=== PATIENT | male | born 1935 | race Caucasian/White ===

== ENCOUNTER 2018-03-11 06:13 | Day surgery (SDC) | payer OTHER ==
[~2018-03-11 06:13] MED LIST: Scopolamine 1.5 MG Transdermal Patch TRDERM ONE
[2018-03-11] MEDS ORDERED: Sodium Chloride 0.9% 10 ML Syringe FLUSH PRN (06:45)
[2018-03-11] MEDS ORDERED: Scopolamine 1.5 MG Transdermal Patch TRDERM ONE (08:00)
[2018-03-11] MEDS ORDERED: Acetaminophen 500 MG Tab PO ONE (08:00)
[2018-03-11] MEDS ORDERED: Gabapentin 300 MG Cap PO ONE (08:00)
[2018-03-11] MEDS: Lactated Ringers 1,000 ML IV SCH ×2 (08:14→21:41)
[2018-03-11] MEDS ORDERED: ePHEDrine 50 MG/ML SDV IV ONE (10:30)
[2018-03-11] MEDS ORDERED: fentaNYL 100 MCG/2 ML SDV IV ONE (10:30)
[2018-03-11] MEDS ORDERED: Dexamethasone 4 MG/ML 5 ML MDV IVPUSH ONE (10:30)
[2018-03-11] MEDS ORDERED: Propofol 200 MG/20 ML SDV IV ONE (10:30)
[2018-03-11] MEDS ORDERED: Glycopyrrolate 0.2 MG/ML 2 ML SDV IV ONE (10:30)
[2018-03-11] MEDS ORDERED: Hetastarch in NS 500 ML IV ONE (10:30)
[2018-03-11] MEDS ORDERED: Rocuronium 100 MG/10 ML MDV IV ONE (10:30)
[2018-03-11] MEDS ORDERED: Succinylcholine 200 MG/10 ML MDV IV ONE (10:30)
[2018-03-11] MEDS ORDERED: Lidocaine 1% 30 ML SDV INJECT ONE (10:30)
[2018-03-11] MEDS ORDERED: Ondansetron 4 MG/2 ML SDV IVPUSH ONE (10:30)
[2018-03-11] MEDS ORDERED: Bupivacaine 0.25% 30 ML SDV INJECT ONE (10:30)
[2018-03-11] MEDS ORDERED: Clindamycin in 0.9 % Sod Chlor 900 MG/50 ML BAG IV ONE (10:30)
[2018-03-11] MEDS ORDERED: Midazolam 1 MG/ML 2 ML SDV IV ONE (10:30)
[2018-03-11] MEDS ORDERED: Metoprolol Tartrate 5 MG/5 ML SDV IV ONE (10:30)
[2018-03-11] MEDS ORDERED: Ketamine 500 mg/10 ML MDV IV ONE (10:30)
[2018-03-11] MEDS ORDERED: Lactated Ringers 1,000 ML IV ONE (10:30)
[2018-03-11] MEDS ORDERED: Naloxone 0.4 MG/ML SDV IVPUSH PRN (13:58)
[2018-03-11] MEDS ORDERED: Ondansetron 4 MG/2 ML SDV IVPUSH PRN (13:58)
[2018-03-11] MEDS ORDERED: Docusate Sodium 100 MG Cap PO PRN (13:58)
[2018-03-11] MEDS ORDERED: Morphine 10 MG/ML Syringe IVPUSH PRN (13:58)
--- NOTE | 2018-03-11 14:56 | PCM.PRNOTE ---
- Free Text/Narrative Note: Supraclavicular approach to brachial plexus block: left side for post op pain management for left reverse total shoulder arthroplasty. The patient was brought into the procedure room after consent was obtained. ASA monitors were placed and oxygen 4L/NC was administered. A time out pre procedure was completed and 824 and site was confirmed by operative marking per surgeon and anesthesia. The patient was sedated with a total of 2 mg versed and 100 mcg fentanyl for the procedure. He was prepped with chloraprep and draped in the usual fashion. The prep was allowed to dry. Procedure time: 5490-3031 Procedure: Initial scan in plane view via ultrasound identifies aragon structures of subclavian artery, the brachial plexus, first rib, and the pleura. A skin wheal of 1% lidocaine prior to needle entry. A 20 gauge 4 inch simuplex echogenic needle was used. Under direct vision via ultrasound the needle was guided around the brachial plexus. Nerve stimulation was also used with positive twitch at 0.8 ma and lost at 0.3 ma. Negative aspiration prior to each injection of incremental doses of 5ml of 0.25% bupivicaine mixed with 8 mg decadron, for a total volume of 30 ml bupivicaine. Elipse filling around the brachial plexus was noted and images are saved in PACS system. Vital signs remained stable throughout. Within 10 minutes, he lost motor capability and arm felt "". The patient was returned to OPS admitting area and placed on 2L/NC oxygen and pulse oximeter and report was given to RN.
--- NOTE | 2018-03-11 15:26 | CR ---
INDICATION: TSA, postop for reverse total shoulder arthroplasty. LEFT SHOULDER: A single portable AP upright view of the left shoulder was obtained post reverse total shoulder arthroplasty and revealed suggestion of good position and alignment on the single view with no definite complicating process identified. Overlying skin argenis are noted. The convex glenoid component of the arthroplasty is noted along the inferior aspect of the glenoid fossa. Findings were compared with preop study of 2017 showing severe glenohumeral osteoarthritis. LAUREN
[2018-03-11] MEDS: Acetaminophen/oxyCODONE 325-5 MG Tab PO PRN ×2 (15:47→19:46)
[2018-03-11] MEDS: Famotidine 20 MG Tab PO SCH ×2 (16:20→21:30)
[2018-03-11] MEDS: Clindamycin in 0.9 % Sod Chlor 900 MG/50 ML BAG IV SCH (18:14)
[2018-03-11] MEDS ORDERED: Citalopram 20 MG Tab PO SCH (21:00)
[2018-03-11] MEDS ORDERED: atorvaSTATin 40 MG Tab PO SCH (21:00)
[2018-03-11] MEDS ORDERED: AMITRIPTYLINE HCL 75 MG PO SCH (21:00)
--- NOTE | 2018-03-11 21:08 | OR ---
DATE OF OPERATION: 03/11/2018 SURGEON: Ravi Manzanares DO PREOPERATIVE DIAGNOSES: Left shoulder glenohumeral arthritis, rotator cuff arthropathies. POSTOPERATIVE DIAGNOSES: Left shoulder glenohumeral arthritis, rotator cuff arthropathies. PROCEDURE: Left shoulder total reverse shoulder arthroplasty. ANESTHESIA: Interscalene block plus endotracheal intubation. FLUID: Lactated ringer solution. ESTIMATED BLOOD LOSS: 100 mL. COMPLICATIONS: None. SPECIMEN: None. DISCHARGE DISPOSITION: Stable to PACU. INSTRUMENTATION: Biomet standard baseplate with a 41 standard glenosphere. Humeral component is a 17 mini stem, size 50 mm central screw, 40 mm and 45 mm superior and posterior screws. HISTORY/INDICATIONS FOR THE PROCEDURE: The patient was seen preoperatively in the clinic. He had a right total shoulder performed approximately 25 years ago. He did quite well from this. Preoperative imaging confirmed the above-mentioned diagnosis. He failed nonoperative treatment. Risks and benefits of the procedure were explained to the patient. Informed consent was obtained. DETAILS OF PROCEDURE: The patient was seen preoperatively by me and the Anesthesia staff in the preoperative holding area where the operative site was marked. He was brought to the operative suite by the Anesthesia staff where an interscalene block was administered as well as general endotracheal intubation. The patient was placed in a beach chair position, all extremities found to be well padded. There was a towel placed under the posterior scapula. The left upper extremity was then prepped and draped in a sterile manner. Time-out was called identifying the correct patient, the correct procedure, the correct site, and antibiotics have been infiltrated at appropriate period of time. A deltopectoral incision was made 2 cm distal to the axilla and 2 cm proximal to coracoid process, just medial to it. The cephalic vein was not identified. I went through the deltopectoral interval, identified the superior border the pectoralis major, and then released the superior 1 cm of this. I then released any adhesions under the deltoid. I then identified the intertubercular groove along the biceps tendon up to the glenoid. I tagged the biceps tendon and released it. I then stayed on bone underneath the humeral head and released the anterior capsule and released this up to the glenoid. I then identified the supraspinatus and infraspinatus which were still intact, I tagged these. I tagged the subscapularis before releasing it. I then rotated the humerus and was able to release the posterior capsule. There was an incredibly large osteophyte in the inferior humeral neck. I took this off with an osteotome, I was unable to remove it, so I put in my reamers after dislocating the humeral head and reamed up to a 17 and attached my cutting guide and pinned that in place, removed the reamer, and then cut my proximal humeral cut. After this had been performed, I was able to remove the inferior humeral neck osteophyte. I then sequentially broached up to a 17. I used the calcar reamer at that point, the bone was incredibly poor. We left the broach in and then retracted for glenoid exposure which was extremely difficult. I removed as much as the labrum as possible. I then used my guide and then placed my central Renzo pin and then reamed until the inferior portion had gone through the cartilage. When I had done this, I think that when I removed my inferior osteophyte that it may have put too much pressure along the anterior glenoid and the inferior glenoid. I had very little bone left. I decided that it was not worth repositioning because I could not guarantee that the rest of the bone would not be as good. We then put in the trial to make sure that the glenoid component would fit, which it did. We then inserted our glenoid baseplate and tamped this into position and then drilled a 50 central hole and then put a 50 central screw, and I then used my guide and placed a 45 mm superior and a 40 mm posterior lag screw, this had excellent bite. I placed and inferior 15 mm screw as well, which was a locking, with very poor bite. I then removed bone from the humeral head and then tacked the area of glenoid loss anteriorly. The baseplate did appear to be quite solid. I then prepared my glenosphere. I tamped it into a C- position and then implanted it. This provided excellent stability. I then focused on my humeral component. Because there was some substance, I used the calcar reamer again and then I thought that my final stem was a little bit loose, so I used cancellous chips and packed around the proximal humerus. This had put in the correct version. I then put in my trial standard baseplate and then ended up with a +3. This provided excellent stability throughout range of motion. I copiously irrigated with saline. Before I placed in my humeral stem, I placed multiple anchors using JuggerKnot anchors and then reattached the supraspinatus, infraspinatus, proximal biceps tendon, and subscapularis. I then closed my deltopectoral interval with #1 Stratafix and then the subcutaneous layer with #1 Stratafix and then tagged it deep to decrease my space. I then used a 3-0 Stratafix, followed by skin argenis, followed by sterile dressing. The patient was then allowed to awaken from anesthesia and taken to the PACU in stable condition. /[id number] AMARA/CHLOE
[2018-03-11] MEDS: Gabapentin 600 MG Tab PO SCH (21:31)
[2018-03-11] MEDS: metFORMIN 500 MG Tab PO SCH (21:31)
[2018-03-12] MEDS: Clindamycin in 0.9 % Sod Chlor 900 MG/50 ML BAG IV SCH ×2 (01:46→10:03)
[2018-03-12] MEDS: Acetaminophen/oxyCODONE 325-5 MG Tab PO PRN ×3 (01:53→12:53)
[2018-03-12] MEDS: Pantoprazole 40 MG Tab.CR PO SCH ×2 (05:02→06:53)
[2018-03-12] MEDS: Lactated Ringers 1,000 ML IV SCH (06:04)
[2018-03-12] MEDS ORDERED: Atenolol 25 MG Tab PO SCH (09:00)
[2018-03-12] MEDS ORDERED: Calcium Polycarbophil 625 MG Tab PO SCH (09:00)
[2018-03-12] MEDS ORDERED: Chlorthalidone 25 MG Tab PO SCH (09:00)
[2018-03-12] MEDS ORDERED: Lisinopril 2.5 MG Tab PO SCH (09:00)
[2018-03-12] MEDS: metFORMIN 500 MG Tab PO SCH (09:14)
[2018-03-12] MEDS: Famotidine 20 MG Tab PO SCH (09:15)
[2018-03-12] MEDS: Gabapentin 600 MG Tab PO SCH (09:15)
[2018-03-12 09:16] VITALS: BP 118/54
--- NOTE | 2018-03-12 15:02 | DISCH ---
DISCHARGE DATE: 03/12/2018 HISTORY OF PRESENT ILLNESS: Mr. Quach is an 82-year-old, male, who resides in [place], [place], seen in the morning of 03/12 for discharge. Underwent left shoulder total reverse shoulder arthroplasty under the care of Dr. Ravi Manzanares under interscalene block and endotracheal intubation. All went well. Pain is minimal by his report. Completing three doses of intravenous clindamycin. LABORATORY STUDIES: On 03/02/2018, hemoglobin 10.3, white count 10,000, normal differential. Preoperative hemoglobin 13.9, hematocrit 42.3 respectively. OBJECTIVE: VITAL SIGNS: 36.7, 118/54, 75, 92% on room air. GENERAL: Appears comfortable. NECK: Benign. Thyroid small. Shoulder had a bulky dressing intact without discharge or redness. CHEST: Clear all lung matamoros. HEART: Regular. ASSESSMENT: Postoperative care, left shoulder total shoulder replacement. PLAN: All looks well. Outpatient home health will be provided by [facility]. Support services in place, cooperative care and well being. Follow up with Dr. Ravi Manzanares as indicated accordingly. /[id number] /CHLOE
== END 2018-03-12 12:58 | disposition home or self-care (01) ==
LOC: FB.SDS 06:13 → FB.MS 14:47 → FB.SDS 03-12 12:58
PROVIDERS: ATTEND Orthopaedic Surgery
DX: M19.012 Primary osteoarthritis, left shoulder (principal); G89.18 Other acute postprocedural pain
CPT/HCPCS: 23472; 36415; 64415; 73020; 80053; 82962; 85025; 85027; 86850; 86900; 86901; A9270; J2270; J3490; J7120; 99213; C1713; C1776; J0330; J1100; J2250; J2405; J2704; J3010; J7030

== ENCOUNTER 2018-04-21 16:53 | Inpatient (IN) | payer OTHER, MEDICARE, BC ==
--- NOTE | 2018-04-21 17:31 | EDM.PDOC ---
ED HPI GENERAL MEDICAL PROBLEM - General Stated Complaint: NECK AND SHOULDER PAIN,DIZZINESS,NAUSEA Time Seen by Provider: 04/21/18 16:53 Source of Information: Reports: Patient History Limitations: Reports: No Limitations - History of Present Illness INITIAL COMMENTS - FREE TEXT/NARRATIVE: 83 y.o.w.m s/p left shoulder replacement on 03/11/2018, H/O NIDDM, came to the ed due to severe left arm pain which started after he had physical Therapy for the firs time today. Any movement of his left arm hurts. He C/O dizziness, neck pain and bilat shoulder pain as well. Pt denied any fall and trauma other then the physical therapy today. He denied H/A and C/P. No N/V/D or any other acute medical issues. BP 127/87 Pulse 80, Temp 36.7 RR 20 Pulse ox 96% on RA. Onset Date: 04/20/18 Onset Time: 16:00 Duration: Day(s):, Getting Worse, Intermittent Location: Reports: Head, Neck, Back (upper back, ), Upper Extremity, Left ( swelling of left upper arm) Quality: Reports: Ache, Burning, Dull, Pressure Severity: Mild Improves with: Reports: Rest Worsens with: Reports: Movement Context: Reports: Other (His dizziness, meck pain and upper shpulde rpain started yesterday after physical Tx) L neck & shoulder Pain Score (Numeric/FACES): 6 - Related Data Allergies Allergy/AdvReac Type Severity Reaction Status Date / Time amoxicillin [Amoxicillin] Allergy Diarrhea Verified 04/21/18 18:39 Penicillins Allergy Diarrhea Verified 04/21/18 18:39 Home Meds: Home Meds Atenolol [Tenormin] 25 mg PO DAILY 01/14/15 [History] Lisinopril 2.5 mg PO DAILY 01/14/15 [History] Aspirin [Children's Aspirin] 81 mg PO DAILY 01/15/15 [History] Gabapentin [Neurontin] 600 mg PO BID 11/16/16 [History] Calcium Polycarbophil [Fibercon] 1,250 mg PO DAILY 03/10/18 [History] Chlorthalidone 12.5 mg PO DAILY 03/10/18 [History] Citalopram Hydrobromide [Celexa] 20 mg PO BEDTIME 03/10/18 [History] Pantoprazole Sodium [Protonix] 40 mg PO DAILY 03/10/18 [History] atorvaSTATin Calcium [Atorvastatin Calcium] 40 mg PO DAILY 03/10/18 [History] metFORMIN HCl [Metformin HCl] 250 mg PO BID 03/10/18 [History] Acetaminophen [Tylenol Arthritis] 1,300 mg PO TID 04/21/18 [History] Past Medical History - Past Health History Medical/Surgical History: Denies Medical/Surgical History HEENT History: Reports: Cataract, Hard of Hearing, Impaired Vision Cardiovascular History: Reports: Heart Murmur, High Cholesterol, Hypertension Respiratory History: Reports: None Gastrointestinal History: Reports: GERD Genitourinary History: Reports: BPH 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 Dermatologic History: Reports: Other (See Below) Other Dermatologic History: DERMATITIS, UNSPECIFIED - Past Surgical History Head Surgeries/Procedures: Reports: None HEENT Surgical History: Reports: Cataract Surgery, Tonsillectomy Other Musculoskeletal Surgeries/Procedures:: L RICHMOND, R TSA and hx of OA Social & Family History - Family History Family Medical History: Noncontributory - Caffeine Use Caffeine Use: Reports: Coffee ED ROS GENERAL - Review of Systems Review Of Systems: See Below Constitutional: Reports: Weakness HEENT: Reports: No Symptoms Respiratory: Reports: No Symptoms Cardiovascular: Reports: No Symptoms Endocrine: Reports: No Symptoms GI/Abdominal: Reports: No Symptoms : Reports: No Symptoms Musculoskeletal: Reports: Neck Pain, Shoulder Pain, Arm Pain, Muscle Pain Skin: Reports: No Symptoms Neurological: Reports: No Symptoms Psychiatric: Reports: No Symptoms Hematologic/Lymphatic: Reports: No Symptoms Immunologic: Reports: No Symptoms ED EXAM, UPPER BACK/NECK PAIN - Physical Exam Exam: See Below Exam Limited By: No Limitations General Appearance: Alert, Moderate Distress, Thin Eye Exam: Bilateral Eye: Normal Inspection Ears Exam: Normal External Exam Nose Exam: Normal Inspection Throat/Mouth Exam: Normal Inspection, Normal Lips, Normal Gums, Normal Voice, No Airway Compromise, Dental Decay Head Exam: Atraumatic, Normocephalic Neck Exam: Limited Range of Motion, Paraspinous Muscle Tender, Tender Lateral Cardiovascular/Respiratory: Regular Rate, Rhythm, No M/R/G, Normal Peripheral Pulses, No JVD, No Respiratory Distress GI/Abdominal: Normal Bowel Sounds, Soft, Non-Tender, No Organomegaly, No Distention, No Abnormal Bruit, No Mass, Pelvis Stable (Male) Exam: Deferred Rectal (Males) Exam: Deferred Back Exam: Normal Inspection, Full Range of Motion Extremities: Normal Capillary Refill, Joint Swelling (left shoulder), Limited Range of Motion (of left soulder due to pain) 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 Any movement of his left arm hurts. He C/O dizziness, neck pain and bilat shoulder pain as well. Pt denied any fall and trauma other then the physical therapy today. He denied H/A and C/P. No N/V/D or any other acute medical issues. BP 127/87 Pulse 80, Temp 36.7 RR 20 Pulse ox 96% on RA. PE: Thin 83 y.o.w.m with left arm, oriana shoulder and neck pain. Dizziness as well. Imaging: No PE/Pneumonia, Tip of screws abuts left lat 3rd rib. 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 Left arm pain Tx: Ice, Toradol, water po 9.23 pm Consultation: Dr. Elza Reyes [facility]: Not convinced there is a dislocation or Fx left upper extremity nor an acute rib fx, recommends CT left upper extremity. 10.04 pm Consultation: Dr. Chan, Interventional Radiologist: Could not see Pseudaneurysm/Aneurysm at te left wall, no need to do any procedure at this time 10.12 PM Consultation: Dr. Manzanares, Surgeon: CT left upper extremity. Please admit to Hospitalist. Dr. Manzanares will see the pt in am Reexam: Pt remained stable in the ED Plan: Admit for obs. CT left shoulder/arm is pending Last Recorded V/S: Last Vital Signs Temp 36.5 C 04/22/18 03:30 Pulse 81 04/22/18 03:30 Resp 16 04/22/18 03:30 BP 168/91 H 04/22/18 03:30 Pulse Ox 94 L 04/22/18 03:30 - Orders/Labs/Meds Orders: Active Orders 24 hr Category Date Time Status Cooling Warming Measures [RC] .PRN Care 04/21/18 22:20 Active Ang Chest [CT] Stat Exams 04/21/18 17:59 Taken Cervical Spine wo Cont [CT] Stat Exams 04/21/18 19:14 Taken Head wo Cont [CT] Stat Exams 04/21/18 19:14 Taken Upper Extremity wo Cont Lt [CT] Stat Exams 04/21/18 22:20 Taken VL Duplex Upr Ext Veins Ltd Lt [US] Stat Exams 04/21/18 17:43 Taken UA W/MICROSCOPIC [URIN] Stat Lab 04/21/18 19:25 Ordered Sodium Chloride 0.9% [Saline Flush] Med 04/21/18 18:53 Active 10 ml FLUSH ASDIRECTED PRN Ice Bag [Ice Therapy] [OM.PC] Routine Oth 04/21/18 22:20 Ordered Peripheral IV Insertion Adult [OM.PC] Routine Oth 04/21/18 18:53 Ordered Medication Orders Acetaminophen (Tylenol Arthritis Pain) 1,300 mg PO BID MELISSA Aspirin (Aspirin) 81 mg PO DAILY MELISSA Atenolol (Tenormin) 25 mg PO DAILY MELISSA Calcium Polycarbophil (Fibercon) 1,250 mg PO DAILY MELISSA Chlorthalidone (Chlorthalidone) 12.5 mg PO DAILY MELISSA Citalopram Hydrobromide (Celexa) 20 mg PO BEDTIME MELISSA Diphenhydramine HCl (Benadryl) 50 mg PO BEDTIME PRN PRN Reason: Sleep Last Admin: 04/22/18 00:49 Dose: 50 mg Gabapentin (Neurontin) 600 mg PO BID [facility] Lisinopril (Prinivil) 2.5 mg PO DAILY [facility] Morphine Sulfate (Morphine) 2 mg IVPUSH Q4H PRN PRN Reason: Pain Last Admin: 04/22/18 07:50 Dose: 2 mg Admin: 04/22/18 03:43 Dose: 2 mg Non-Formulary Medication (Atorvastatin Calcium [Atorvastatin Calcium]) 40 mg PO DAILY [facility] Pantoprazole Sodium (Protonix) 40 mg PO DAILY [facility] Sodium Chloride (Saline Flush) 10 ml FLUSH ASDIRECTED PRN PRN Reason: Keep Vein Open Last Admin: 04/22/18 07:51 Dose: 10 ml Admin: 04/22/18 03:44 Dose: 10 ml Admin: 04/21/18 22:42 Dose: 10 ml Admin: 04/21/18 18:45 Dose: 10 ml Labs: Laboratory Tests 04/21/18 04/21/18 04/21/18 Range/Units 17:35 17:35 17:35 WBC 9.6 (4.5-12.0) X10-3/uL RBC 3.87 L (4.30-5.75) x10(6)uL Hgb 11.7 (11.5-15.5) g/dL Hct 35.6 (30.0-51.3) % MCV 91.9 (80-96) fL MCH 30.2 (27.7-33.6) pg MCHC 32.8 (32.2-35.4) g/dL RDW 13.0 (11.5-15.5) % Plt Count 312 (125-369) X10(3)uL MPV 6.8 L (7.4-10.4) fL Neut % (Auto) 69.1 (46-82) % Lymph % (Auto) 22.9 (13-37) % [place] % (Auto) 3.3 L (4-12) % Eos % (Auto) 4 (1.0-5.0) % Baso % (Auto) 1 (0-2) % Neut # (Auto) 6.7 (1.6-8.3) # Lymph # (Auto) 2.2 (0.6-5.0) # [place] # (Auto) 0.3 (0.0-1.3) # Eos # (Auto) 0.4 (0.0-0.8) # Baso # (Auto) 0.0 (0.0-0.2) # PT (8.7-11.1) INR (0.89-1.13) D-Dimer, Quantitative 1.93 H (0.0-0.59) mg/LFEU Sodium 138 (135-145) mmol/L Potassium 3.4 L (3.5-5.3) mmol/L Chloride 101 (100-110) mmol/L Carbon Dioxide 28 (21-32) mmol/L BUN 21 H (7-18) mg/dL Creatinine 1.0 (0.70-1.30) mg/dL Est Cr Clr Drug Dosing TNP Estimated GFR (MDRD) > 60 (>60) BUN/Creatinine Ratio 21.0 H (9-20) Glucose 146 H (80-116) mg/dL Calcium 8.8 (8.6-10.2) mg/dL Creatine Kinase 21 L (60-160) IU/L Troponin I (<0.017-0.056) ng/mL Urine Color (YELLOW) Urine Appearance (CLEAR) Urine pH (5.0-6.5) Ur Specific [place] (1.010-1.025) Urine Protein (NEGATIVE) mg/dL Urine Glucose (UA) (NEGATIVE) mg/dL Urine Ketones (NEGATIVE) mg/dL Urine Occult Blood (NEGATIVE) Urine Nitrite (NEGATIVE) Urine Bilirubin (NEGATIVE) Urine Urobilinogen (NEGATIVE) mg/dL Ur Leukocyte Esterase (NEGATIVE) Urine RBC (0) Urine WBC (0) Ur Squamous Epith Cells (NS,R,O) Urine Bacteria (NS) 04/21/18 04/21/18 04/21/18 Range/Units 17:35 17:35 19:25 WBC (4.5-12.0) X10-3/uL RBC (4.30-5.75) x10(6)uL Hgb (11.5-15.5) g/dL Hct (30.0-51.3) % MCV (80-96) fL MCH (27.7-33.6) pg MCHC (32.2-35.4) g/dL RDW (11.5-15.5) % Plt Count (125-369) X10(3)uL MPV (7.4-10.4) fL Neut % (Auto) (46-82) % Lymph % (Auto) (13-37) % [place] % (Auto) (4-12) % Eos % (Auto) (1.0-5.0) % Baso % (Auto) (0-2) % Neut # (Auto) (1.6-8.3) # Lymph # (Auto) (0.6-5.0) # [place] # (Auto) (0.0-1.3) # Eos # (Auto) (0.0-0.8) # Baso # (Auto) (0.0-0.2) # PT 10.1 (8.7-11.1) INR 1.04 (0.89-1.13) D-Dimer, Quantitative (0.0-0.59) mg/LFEU Sodium (135-145) mmol/L Potassium (3.5-5.3) mmol/L Chloride (100-110) mmol/L Carbon Dioxide (21-32) mmol/L BUN (7-18) mg/dL Creatinine (0.70-1.30) mg/dL Est Cr Clr Drug Dosing Estimated GFR (MDRD) (>60) BUN/Creatinine Ratio (9-20) Glucose (80-116) mg/dL Calcium (8.6-10.2) mg/dL Creatine Kinase (60-160) IU/L Troponin I < 0.017 L (<0.017-0.056) ng/mL Urine Color Yellow (YELLOW) Urine Appearance Clear (CLEAR) Urine pH 8.0 H (5.0-6.5) Ur Specific [place] 1.015 (1.010-1.025) Urine Protein Negative (NEGATIVE) mg/dL Urine Glucose (UA) Normal (NEGATIVE) mg/dL Urine Ketones Negative (NEGATIVE) mg/dL Urine Occult Blood Negative (NEGATIVE) Urine Nitrite Negative (NEGATIVE) Urine Bilirubin Negative (NEGATIVE) Urine Urobilinogen Normal (NEGATIVE) mg/dL Ur Leukocyte Esterase Negative (NEGATIVE) Urine RBC Not seen (0) Urine WBC 0-5 (0) Ur Squamous Epith Cells Rare (NS,R,O) Urine Bacteria Rare H (NS) Meds: Medications Generic Name Dose Route Start Last Admin Trade Name Freq PRN Reason Stop Dose Admin Acetaminophen 1,300 mg 04/22/18 21:00 Tylenol Arthritis Pain PO BID [facility] Aspirin 81 mg 04/22/18 11:00 Aspirin PO DAILY [facility] Atenolol 25 mg 04/22/18 11:00 Tenormin PO DAILY [facility] Calcium Polycarbophil 1,250 mg 04/23/18 09:00 Fibercon PO DAILY [facility] Chlorthalidone 12.5 mg 04/23/18 09:00 Chlorthalidone PO DAILY [facility] Citalopram Hydrobromide 20 mg 04/22/18 21:00 Celexa PO BEDTIME MELISSA Diphenhydramine HCl 50 mg 04/22/18 00:23 04/22/18 00:49 Benadryl PO 50 mg BEDTIME PRN Administration Sleep Gabapentin 600 mg 04/22/18 21:00 Neurontin PO BID [facility] Lisinopril 2.5 mg 04/22/18 11:00 Prinivil PO DAILY [facility] Morphine Sulfate 2 mg 04/22/18 03:30 04/22/18 07:50 Morphine IVPUSH 2 mg Q4H PRN Administration Pain Non-Formulary Medication 40 mg 04/23/18 09:00 Atorvastatin Calcium [Atorvastatin Calcium] PO DAILY [facility] Pantoprazole Sodium 40 mg 04/23/18 09:00 Protonix PO DAILY [facility] Sodium Chloride 10 ml 04/21/18 18:53 04/22/18 07:51 Saline Flush FLUSH 10 ml ASDIRECTED PRN Administration Keep Vein Open Discontinued Medications Generic Name Dose Route Start Last Admin Trade Name Freq PRN Reason Stop Dose Admin Iopamidol 100 ml 04/21/18 18:46 04/21/18 19:23 Isovue-370 (76%) IV 04/21/18 18:47 100 ml ONETIME ONE Administration Iopamidol 100 ml 04/21/18 19:20 04/22/18 10:50 Isovue-370 (76%) IV 04/21/18 19:21 Not Given ONETIME ONE Ketorolac Tromethamine 15 mg 04/21/18 22:19 04/21/18 22:41 Toradol IVPUSH 04/21/18 22:20 15 mg ONETIME ONE Administration Departure - Departure Time of Disposition: 21:00 Disposition: Admitted As Inpatient 67 Condition: Fair Clinical Impression: Left arm pain - Discharge Information - My Orders Last 24 Hours: My Active Orders 04/21/18 17:43 VL Duplex Upr Ext Veins Ltd Lt [US] Stat 04/21/18 17:59 Ang Chest [CT] Stat 04/21/18 18:53 Sodium Chloride 0.9% [Saline Flush] 10 ml FLUSH ASDIRECTED PRN Peripheral IV Insertion Adult [OM.PC] Routine 04/21/18 19:14 Cervical Spine wo Cont [CT] Stat Head wo Cont [CT] Stat 04/21/18 19:25 UA W/MICROSCOPIC [URIN] Stat 04/21/18 22:20 Cooling Warming Measures [RC] .PRN Upper Extremity wo Cont Lt [CT] Stat Ice Bag [Ice Therapy] [OM.PC] Routine - Assessment/Plan Last 24 Hours: My Active Orders 04/21/18 17:43 VL Duplex Upr Ext Veins Ltd Lt [US] Stat 04/21/18 17:59 Ang Chest [CT] Stat 04/21/18 18:53 Sodium Chloride 0.9% [Saline Flush] 10 ml FLUSH ASDIRECTED PRN Peripheral IV Insertion Adult [OM.PC] Routine 04/21/18 19:14 Cervical Spine wo Cont [CT] Stat Head wo Cont [CT] Stat 04/21/18 19:25 UA W/MICROSCOPIC [URIN] Stat 04/21/18 22:20 Cooling Warming Measures [RC] .PRN Upper Extremity wo Cont Lt [CT] Stat Ice Bag [Ice Therapy] [OM.PC] Routine
[2018-04-21] MEDS: Sodium Chloride 0.9% 10 ML Syringe FLUSH PRN ×2 (18:45→22:42)
[2018-04-21] MEDS ORDERED: Iopamidol 755 Mg/ML 100 ML Bottle IV ONE ×2 (18:46→19:20)
[2018-04-21] MEDS ORDERED: Ketorolac 30 MG/ML SDV IVPUSH ONE (22:19)
[2018-04-22] MEDS: diphenhydrAMINE 50 MG Cap PO PRN ×2 (00:49→21:25)
[2018-04-22] MEDS: Morphine 10 MG/ML Syringe IVPUSH PRN ×5 (03:43→21:22)
[2018-04-22] MEDS: Sodium Chloride 0.9% 10 ML Syringe FLUSH PRN ×5 (03:44→21:25)
--- NOTE | 2018-04-22 10:24 | PCM.CONS ---
H&P History of Present Illness - General Date of Service: 04/22/18 Admit Problem/Dx: Admission Diagnosis/Problem Admission Diagnosis/Problem Upper extremity pain, diffuse Source of Information: Patient History Limitations: Reports: No Limitations - History of Present Illness Onset of Symptoms: Reports: Sudden Duration of Symptoms: Reports: Day(s): Location: Reports: Upper Extremity, Left Quality: Reports: Burning, Dull, Pressure, Stabbing Severity: Moderate Improves with: Reports: Immobilization Worsens with: Reports: Movement Associated Symptoms: Reports: No Other Symptoms L neck & shoulder Pain Score (Numeric/FACES): 6 - Related Data Allergies/Adverse Reactions: Allergies Allergy/AdvReac Type Severity Reaction Status Date / Time amoxicillin [Amoxicillin] Allergy Diarrhea Verified 04/21/18 18:39 Penicillins Allergy Diarrhea Verified 04/21/18 18:39 Home Medications: Home Meds Atenolol [Tenormin] 25 mg PO DAILY 01/14/15 [History] Lisinopril 2.5 mg PO DAILY 01/14/15 [History] Aspirin [Children's Aspirin] 81 mg PO DAILY 01/15/15 [History] Gabapentin [Neurontin] 600 mg PO BID 11/16/16 [History] Calcium Polycarbophil [Fibercon] 1,250 mg PO DAILY 03/10/18 [History] Chlorthalidone 12.5 mg PO DAILY 03/10/18 [History] Citalopram Hydrobromide [Celexa] 20 mg PO BEDTIME 03/10/18 [History] Pantoprazole Sodium [Protonix] 40 mg PO DAILY 03/10/18 [History] atorvaSTATin Calcium [Atorvastatin Calcium] 40 mg PO DAILY 03/10/18 [History] metFORMIN HCl [Metformin HCl] 250 mg PO BID 03/10/18 [History] Acetaminophen [Tylenol Arthritis] 1,300 mg PO TID 04/21/18 [History] Past Medical History - Past Health History Medical/Surgical History: Denies Medical/Surgical History HEENT History: Reports: Cataract, Hard of Hearing, Impaired Vision Cardiovascular History: Reports: Heart Murmur, High Cholesterol, Hypertension Respiratory History: Reports: None Gastrointestinal History: Reports: GERD Genitourinary History: Reports: BPH [employer] History: Reports: None Musculoskeletal History: Reports: Back Pain, Chronic, Osteoarthritis Neurological History: Reports: None Psychiatric History: Reports: Depression Endocrine/Metabolic History: Reports: Diabetes, Type II Hematologic History: Reports: Anticoagulation Therapy Immunologic History: Reports: None Oncologic (Cancer) History: Reports: Other (See Below) Other Oncologic History: area in nose removed back when pt was in the service. Dermatologic History: Reports: Other (See Below) Other Dermatologic History: DERMATITIS, UNSPECIFIED - Infectious Disease History Infectious Disease History: Reports: Chicken Pox, Measles, Mumps - Past Surgical History Head Surgeries/Procedures: Reports: None HEENT Surgical History: Reports: Cataract Surgery, Tonsillectomy Other Musculoskeletal Surgeries/Procedures:: L RICHMOND, R TSA and hx of OA Social & Family History - Family History Family Medical History: Noncontributory - Tobacco Use Smoking Status *Q: Former Smoker Years of Tobacco use: 26 Used Tobacco, but Quit: Yes Month/Year Tobacco Last Used: 1979 - Caffeine Use Caffeine Use: Reports: Coffee Other Caffeine Use: Pot ful a day - Recreational Drug Use Recreational Drug Use: No H&P Review of Systems - Review of Systems: Review Of Systems: See Below General: Reports: No Symptoms HEENT: Reports: No Symptoms Pulmonary: Reports: No Symptoms Cardiovascular: Reports: No Symptoms Gastrointestinal: Reports: No Symptoms Genitourinary: Reports: No Symptoms Musculoskeletal: Reports: Neck Pain, Shoulder Pain, Back Pain Skin: Reports: No Symptoms Psychiatric: Reports: No Symptoms Neurological: Reports: No Symptoms Hematologic/Lymphatic: Reports: No Symptoms Immunologic: Reports: No Symptoms Exam - Exam Exam: See Below - Vital Signs Vital Signs: Last Vital Signs Temp 97.7 F 04/22/18 03:30 Pulse 81 04/22/18 03:30 Resp 16 04/22/18 03:30 BP 168/91 H 04/22/18 03:30 Pulse Ox 94 L 04/22/18 03:30 Weight: 200 lb - Exam General: Alert, Oriented HEENT: Hearing Intact, Mucosa Moist & Bettles, Pupils Equal, Pupils Reactive Neck: Supple, Trachea Midline Lungs: Normal Respiratory Effort Extremities: Limited Range of Motion Peripheral Pulses: 2+: Radial (L) Skin: Warm, Dry, Intact Neurological: Cranial Nerves Intact Neuro Extensive - Mental Status: Alert, Oriented x3, Normal Mood/Affect, Normal Cognition, Memory Intact Psychiatric: Alert, Normal Affect, Normal Mood - Patient Data Lab Results Last 24 hrs: Laboratory Results - last 24 hr 04/21/18 04/21/1818 Range/Units 17:35 17:35 17:35 WBC 9.6 (4.5-12.0) X10-3/uL RBC 3.87 L (4.30-5.75) x10(6)uL Hgb 11.7 (11.5-15.5) g/dL Hct 35.6 (30.0-51.3) % MCV 91.9 (80-96) fL MCH 30.2 (27.7-33.6) pg MCHC 32.8 (32.2-35.4) g/dL RDW 13.0 (11.5-15.5) % Plt Count 312 (125-369) X10(3)uL MPV 6.8 L (7.4-10.4) fL Neut % (Auto) 69.1 (46-82) % Lymph % (Auto) 22.9 (13-37) % [place] % (Auto) 3.3 L (4-12) % Eos % (Auto) 4 (1.0-5.0) % Baso % (Auto) 1 (0-2) % Neut # (Auto) 6.7 (1.6-8.3) # Lymph # (Auto) 2.2 (0.6-5.0) # [place] # (Auto) 0.3 (0.0-1.3) # Eos # (Auto) 0.4 (0.0-0.8) # Baso # (Auto) 0.0 (0.0-0.2) # PT (8.7-11.1) INR (0.89-1.13) D-Dimer, Quantitative 1.93 H (0.0-0.59) mg/LFEU Sodium 138 (135-145) mmol/L Potassium 3.4 L (3.5-5.3) mmol/L Chloride 101 (100-110) mmol/L Carbon Dioxide 28 (21-32) mmol/L BUN 21 H (7-18) mg/dL Creatinine 1.0 (0.70-1.30) mg/dL Est Cr Clr Drug Dosing TNP Estimated GFR (MDRD) > 60 (>60) BUN/Creatinine Ratio 21.0 H (9-20) Glucose 146 H (80-116) mg/dL Calcium 8.8 (8.6-10.2) mg/dL Creatine Kinase 21 L (60-160) IU/L Troponin I (<0.017-0.056) ng/mL Urine Color (YELLOW) Urine Appearance (CLEAR) Urine pH (5.0-6.5) Ur Specific [place] (1.010-1.025) Urine Protein (NEGATIVE) mg/dL Urine Glucose (UA) (NEGATIVE) mg/dL Urine Ketones (NEGATIVE) mg/dL Urine Occult Blood (NEGATIVE) Urine Nitrite (NEGATIVE) Urine Bilirubin (NEGATIVE) Urine Urobilinogen (NEGATIVE) mg/dL Ur Leukocyte Esterase (NEGATIVE) Urine RBC (0) Urine WBC (0) Ur Squamous Epith Cells (NS,R,O) Urine Bacteria (NS) 04/21/18 04/21/18 04/21/18 Range/Units 17:35 17:35 19:25 WBC (4.5-12.0) X10-3/uL RBC (4.30-5.75) x10(6)uL Hgb (11.5-15.5) g/dL Hct (30.0-51.3) % MCV (80-96) fL MCH (27.7-33.6) pg MCHC (32.2-35.4) g/dL RDW (11.5-15.5) % Plt Count (125-369) X10(3)uL MPV (7.4-10.4) fL Neut % (Auto) (46-82) % Lymph % (Auto) (13-37) % [place] % (Auto) (4-12) % Eos % (Auto) (1.0-5.0) % Baso % (Auto) (0-2) % Neut # (Auto) (1.6-8.3) # Lymph # (Auto) (0.6-5.0) # [place] # (Auto) (0.0-1.3) # Eos # (Auto) (0.0-0.8) # Baso # (Auto) (0.0-0.2) # PT 10.1 (8.7-11.1) INR 1.04 (0.89-1.13) D-Dimer, Quantitative (0.0-0.59) mg/LFEU Sodium (135-145) mmol/L Potassium (3.5-5.3) mmol/L Chloride (100-110) mmol/L Carbon Dioxide (21-32) mmol/L BUN (7-18) mg/dL Creatinine (0.70-1.30) mg/dL Est Cr Clr Drug Dosing Estimated GFR (MDRD) (>60) BUN/Creatinine Ratio (9-20) Glucose (80-116) mg/dL Calcium (8.6-10.2) mg/dL Creatine Kinase (60-160) IU/L Troponin I < 0.017 L (<0.017-0.056) ng/mL Urine Color Yellow (YELLOW) Urine Appearance Clear (CLEAR) Urine pH 8.0 H (5.0-6.5) Ur Specific [place] 1.015 (1.010-1.025) Urine Protein Negative (NEGATIVE) mg/dL Urine Glucose (UA) Normal (NEGATIVE) mg/dL Urine Ketones Negative (NEGATIVE) mg/dL Urine Occult Blood Negative (NEGATIVE) Urine Nitrite Negative (NEGATIVE) Urine Bilirubin Negative (NEGATIVE) Urine Urobilinogen Normal (NEGATIVE) mg/dL Ur Leukocyte Esterase Negative (NEGATIVE) Urine RBC Not seen (0) Urine WBC 0-5 (0) Ur Squamous Epith Cells Rare (NS,R,O) Urine Bacteria Rare H (NS) Result Diagrams: 04/21/18 17:35 04/21/18 17:35 Consult PN Assessment/Plan POD#: 0 Procedures: Procedures ASSAY OF SERUM POTASSIUM (12/01/16) BLOOD TYPING SEROLOGIC ABO (03/11/18) BLOOD TYPING SEROLOGIC RH(D) (03/11/18) CATARACT SURG W/IOL 1 STAGE (02/19/15) CATARACT SURGERY COMPLEX (01/15/15) CHEST X-RAY 1 VIEW FRONTAL (11/16/16) COMPLETE CBC AUTOMATED (03/11/18) COMPLETE CBC W/AUTO DIFF WBC (03/11/18) COMPREHEN METABOLIC PANEL (03/11/18) CULTURE OTHR SPECIMN AEROBIC (01/25/18) EMERGENCY DEPT VISIT (09/16/13) GLUCOSE BLOOD TEST (03/11/18) MANUAL THERAPY 1/> REGIONS (05/24/17) N BLOCK INJ BRACHIAL PLEXUS (03/11/18) OT EVAL MOD COMPLEX 45 MIN (02/18/17) PT EVAL LOW COMPLEX 20 MIN (08/23/17) PT EVALUATION (09/02/16) RBC ANTIBODY SCREEN (03/11/18) RECONSTRUCT SHOULDER JOINT (03/11/18) ROUTINE VENIPUNCTURE (03/11/18) THER/PROPH/DIAG INJ SC/IM (09/16/13) THERAPEUTIC EXERCISES (10/26/17) ULTRASOUND THERAPY (04/19/17) X-RAY EXAM HIP UNI 2-3 VIEWS (11/16/16) X-RAY EXAM OF PELVIS (04/05/17) X-RAY EXAM OF SHOULDER (04/15/18) X-RAY EXAM OF SHOULDER (03/11/18) X-RAY EXAM OF SHOULDER (11/19/17) (1) Pain from implanted hardware SNOMED Code(s): 38013408 Code(s): T85.848A - PAIN DUE TO OTHER INTERNAL PROSTH DEV/GRFT, INIT Current Visit: Yes Qualifiers: Encounter type: initial encounter Qualified Code(s): T85.848A - Pain due to other internal prosthetic devices, implants and grafts, initial encounter Problem List Initiated/Reviewed/Updated: Yes My Orders Last 24 Hours: My Active Orders 04/22/18 08:47 EKG Documentation Completion [RC] ASDIRECTED 04/22/18 10:00 EKG 12 Lead [EK] Routine 04/22/18 Lunch Consistent Carbohydrate Diet [DIET] Nothing Per Oral Diet [DIET] Plan: I had the pleasure of visiting with the patient in his hospital room this morning. On Wednesday he was doing physical therapy and felt pain in his left shoulder. He came into the walk-in clinic and then went to the ER. They did evaluate him for chest pain. Troponins were normal. EKG was normal. Laboratory studies were normal. A CT of the chest with angiogram was done. 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 I had the CT of the left upper extremity repeated so I can get coronal and sagittal images. This showed the implant to be located. The screws were into the subscapularis from the glenoid component. He denies any constitutional symptoms. He had believe he was getting a little bit stronger because he was feeling weak for the last few clinic visits. Assessment: Painful hardware from proud screw from glenoid component. Plan:I discussed with the patient that I needed to reposition the glenoid component. Because the patient is so large, fortunately I have plenty of room to position the glenoid component more superiorly in get better screw placement. I will evaluate the stability of the humeral component at that time. I explained to the patient that I am optimistic because he did have surprisingly good rotator cuff available to work with which will help provide stability for the implant. We wanted to do this early this afternoon, but due to the number of pains that we need to run to the sterilizer, will plan on performing this tomorrow morning at 9 AM. I've contacted the rep and asked for macro components. I've explained the risks and benefits of the procedure to the patient. Dr. Bro will be evaluating him for preoperative history and physical. He will need to stay at least until Wednesday. Will plan on setting up home care with [facility].
--- NOTE | 2018-04-22 12:01 | US ---
INDICATION: Swelling left arm for 8 weeks after left shoulder replacement - arthroplasty. DUPLEX ULTRASOUND LEFT UPPER EXTREMITY VEINS: Utilizing 2-D real time, duplex Doppler spectral analysis, and color flow imaging, examination revealed the deep venous structures to show normal flow with no evidence of deep venous thrombosis identified. IMPRESSION: No evidence of DVT in subclavian, axillary, brachial, or basilic veins down to the elbow. MTDD
[2018-04-22] MEDS: Atenolol 25 MG Tab PO SCH (13:08)
[2018-04-22] MEDS: Lisinopril 2.5 MG Tab PO SCH (13:08)
[2018-04-22] MEDS: Aspirin 81 MG Tab.EC PO SCH (13:09)
--- NOTE | 2018-04-22 14:49 | HP ---
ADMISSION DATE: 04/21/2018 REASON FOR ADMISSION: Complicated left shoulder pain. HISTORY OF PRESENT ILLNESS: Koby Quach is an 83-year-old, male, who was admitted to [facility] with complicated left shoulder pain. He had a lengthy ER intervention and care provided. Presented with severe left shoulder pain post therapy. Host of diagnostic tests was performed. Vascular study note no clot elevated D- dimer, normal cardiothoracic well-being, some postoperative disruption of the most recently performed left reverse shoulder replacement 03/11/2018. He is admitted for care and treatment. MEDICATIONS: Present daily medications include: 1. Atorvastatin 40 mg one p.o. daily for hyperlipidemia. 2. Celexa 20 mg one p.o. at bedtime, mood stabilizer. 3. FiberCon 1250 mg daily for stools. 4. Tenormin 25 mg one p.o. b.i.d., heart. 5. Aspirin 81 mg one p.o. daily, heart. 6. Tylenol 1300 mg p.o. t.i.d. joint complaint. 7. Lisinopril 2.5 mg one p.o. daily, blood pressure. 8. Gabapentin 600 mg one p.o. b.i.d. pain. 9. Chlorthalidone 12.5 mg one p.o. daily for edema, hypertension. 10.Metformin 500 mg, 1/2 tablet 250 mg one p.o. b.i.d.. 11.Protonix 40 mg one p.o. daily for hyperlipidemia. ALLERGIES: To amoxicillin with diarrhea. Penicillin with diarrhea. No other medication, environmental, or latex allergies. PAST MEDICAL HISTORY: Significant for remote total shoulder arthroplasty about 20 years ago, left total hip arthroplasty, tonsillectomy as a child. Chronic illnesses include hypertension, mood disorder, and non-insulin diabetes mellitus. No other operative procedures, hospitalizations, unusual childhood diseases, major injuries, or fractures. SOCIAL HISTORY: Retired, worked for [employer] at 72 of lung cancer. One daughter, one son, and three grandchildren. All grandson's. One step granddaughter. FAMILY HISTORY: Negative for early heart disease, diabetes mellitus, or inheritable cancers. REVIEW OF SYSTEMS: GENERAL: Feeling well except for left shoulder pain. EYES: Wears glasses. Previous cataract surgery. EARS: Some difficulty in crowds. OROPHARYNX: Intact. DENTITION: Multiple teeth missing. CHEST: No cough, wheeze, or congestion. CARDIOVASCULAR: Denies chest pain, palpitations, or syncope. GI: Regular, predictable stools, no blood in stools. : Good voiding pattern. No blood in urine. Nocturia x1. SKIN: No new lesions, eruptions, or moles. ENDOCRINE: No excessive thirst, urination. ALLERGY: No chronic cough, wheeze, or congestion. ORTHOPEDIC: Multiple joint complaints. OBJECTIVE: VITAL SIGNS: Weight 90.718 kg, temperature 36.5 degrees centigrade, blood pressure 168/91, 159/84, and 148/76. O2 saturation 94%. GENERAL: Man, cooperative, conversant, gives a good history. HEENT: Reveal funduscopic benign. Conjunctivae clear. Bright tympanic membranes. Clear nasal discharge. Mouth and oropharynx clear. Poor dentition. No loose teeth. NECK: Benign. Thyroid small. CHEST: Clear in all lung matamoros. No adventitious sounds. HEART: Regular without ectopy. Grade 2/6 systolic ejection murmur in aortic area. BREASTS: Normal male breasts. ABDOMEN: Benign. No surgical scars. No hepatosplenomegaly. and RECTAL: Exam deferred. EXTREMITIES: Well perfused. Reflex symmetric, sensation intact. Surgical changes left shoulder, ortho visit described. LABORATORY STUDIES: CBC revealed white count 9600, hemoglobin 11.7, D-dimer 1.93. Electrolytes satisfactory. Potassium 3.4. Glucose 146. GFR greater than 60. Urinalysis was clear. Radiographs under review. ASSESSMENT: Complicated left shoulder pain, unstable left shoulder reverse arthroplasty. SECONDARY DIAGNOSIS: Please see above. PLAN: Admit to hospital for close observation. Will be reviewed by Dr. Manzanares, medications adjusted accordingly. Intervention and care as appropriate. /[id number] LO/CHLOE
[2018-04-22] MEDS: Docusate Sodium 100 MG Cap PO SCH (17:01)
[2018-04-22] MEDS: Magnesium Oxide 400 MG Tab PO SCH (21:21)
[2018-04-22] MEDS: Citalopram 20 MG Tab PO SCH (21:21)
[2018-04-22] MEDS: Gabapentin 600 MG Tab PO SCH (21:22)
[2018-04-22] MEDS: Melatonin 3 MG Tab PO SCH (21:22)
[2018-04-22] MEDS: Acetaminophen 650 MG Tab.ER PO SCH (21:22)
[2018-04-23] MEDS ORDERED: Morphine 2 MG/ML Syringe ONE ×2 (02:59→07:14)
[2018-04-23] MEDS: Morphine 10 MG/ML Syringe IVPUSH PRN ×2 (03:10→07:22)
[2018-04-23] MEDS: Sodium Chloride 0.9% 10 ML Syringe FLUSH PRN ×2 (03:12→07:24)
[2018-04-23] MEDS: Lactated Ringers 1,000 ML IV SCH ×3 (07:42→21:59)
[2018-04-23] MEDS: Pantoprazole 40 MG Tab.CR PO SCH (08:06)
[2018-04-23] MEDS: Gabapentin 600 MG Tab PO SCH ×2 (08:06→20:44)
[2018-04-23] MEDS: Atenolol 25 MG Tab PO SCH (08:06)
[2018-04-23] MEDS ORDERED: Clindamycin in 0.9 % Sod Chlor 900 MG/50 ML BAG IV ONE (09:00)
[2018-04-23] MEDS ORDERED: Calcium Polycarbophil 625 MG Tab PO SCH (09:00)
[2018-04-23] MEDS ORDERED: Clindamycin Phosphate 900 MG in Dextrose 5% in Water 50 ML IV ONE ×2 (09:00)
[2018-04-23] MEDS ORDERED: Vancomycin 1,000 MG SDV ONE (11:23)
[2018-04-23] MEDS ORDERED: Lidocaine 1% with EPINEPHrine 1:100,000 20 ML MDV INJECT ONE (11:35)
[2018-04-23] MEDS ORDERED: Bupivacaine 0.5% 30 ML SDV INJECT ONE (11:36)
[2018-04-23] MEDS ORDERED: Morphine 10 MG/ML Syringe IVPUSH ONE (12:44)
[2018-04-23] MEDS: Docusate Sodium 100 MG Cap PO SCH (15:53)
[2018-04-23] MEDS: Chlorthalidone 25 MG Tab PO SCH (15:53)
[2018-04-23] MEDS: atorvaSTATin 40 MG Tab PO SCH (15:53)
[2018-04-23] MEDS: Lisinopril 2.5 MG Tab PO SCH (15:54)
[2018-04-23] MEDS: Magnesium Oxide 400 MG Tab PO SCH ×2 (15:54→21:43)
[2018-04-23] MEDS: Acetaminophen 650 MG Tab.ER PO SCH ×2 (15:54→20:44)
[2018-04-23] MEDS: Acetaminophen/HYDROcodone 325-7.5 MG Tab PO PRN (16:26)
[2018-04-23] MEDS: Psyllium 0.52 GM Cap PO SCH (17:02)
[2018-04-23] MEDS: Clindamycin Phosphate 900 MG in Sodium Chloride 0.9% 100 ML IV SCH (18:21)
--- NOTE | 2018-04-23 20:19 | OR ---
DATE OF OPERATION: 04/23/2018 SURGEON: Ravi Manzanares DO PREOPERATIVE DIAGNOSES: Painful hardware, left shoulder reverse arthroplasty. POSTOPERATIVE DIAGNOSES: Painful hardware, left shoulder reverse arthroplasty. PROCEDURE: Revision of reverse shoulder arthroplasty with exchange of both glenoid and humeral components. ANESTHESIA: General endotracheal intubation. FLUIDS: Lactated Ringer solution. ESTIMATED BLOOD LOSS: 450 mL. COMPLICATIONS: None. SPECIMENS: None. DISCHARGE DISPOSITION: Stable to PACU. HISTORY AND INDICATIONS FOR THE PROCEDURE: The patient is well known to me. We performed a reverse total shoulder arthroplasty on the left side about 6 weeks ago. He was doing very well with physical therapy until about Wednesday, and he had a lot of pain. We did a CT which showed that the screws were proud from the glenoid component. Risks and benefits of the procedure were explained to the patient. Informed consent was obtained. DETAILS OF PROCEDURE: The patient was seen preoperatively by myself, the anesthesia staff in the preoperative holding area where the operative site was marked. He was brought to the operating suite by anesthesia staff where general anesthesia was administered. He was in a beach chair position. All extremities were found to be well padded. Eyes were protected. Neck was in a slightly flexed position. The left upper extremity was then prepped and draped in a sterile manner. Time-out was called identifying the correct patient, correct procedure, and correct site, and antibiotics had been infiltrated for the appropriate period of time. I went through the same incision. I was able to go through the deltopectoral interval. I did remove a lower portion of skin where there had been previous drainage that had stopped. I went through the clavipectoral fascia and then was able to see the implant. I took a great deal of time going down right on bone over the implant in order to avoid any damage to the axillary nerve and expose my humerus. I was unable to dislocate it, so I then popped my polyethylene off the humeral component. I then removed my humeral baseplate. This took quite a bit of doing. It was on very well which gave me great confidence that the humeral component was well seated and was indwelling. After this had been done, I then used a fork to remove the glenosphere. I then did more exposure and controlled bleeding during the case with Bovie electrocautery. I then used a pronged retractor and removed the screws in the baseplate from the glenosphere. I then removed the baseplate with an extractor mechanism. Minimal bone was removed. I then cleared the rest of the glenoid, so I could evaluate it. I packed some Surgicel in back portion of the central peg hole and then packed some bone graft into the hole and tamped it. I then used a guide to drill the guide pin from the central hole for the baseplate for the glenosphere and then reamed over that pin until I had bleeding bone circumferentially. It looked very good at that point. We then irrigated and then tamped the final baseplate in place and then placed the central screw as well as 3 lockers and 1 non- locking screw. The non-locking screw was the posterior one. After this had been accomplished, I traveled through the glenosphere and trialed a baseplate until we found the right fit. I did lateralize on the glenosphere 3 mm and had a 41 standard +5, +3 humeral baseplate poly. After this seemed to be looking good, I then irrigated with pulse lavage and then Betadine-infused irrigation and then placed some Surgicel posteriorly as well as some Gelfoam. It was just weeping. There was no cuate bleeding from any arterial or venous bleeders that I could see. We then put our final components on. I put the glenosphere in the E-position and then impacted all of my components. I did rotate the wide lip to the anterior position because I really did have any plate posteriorly, and I then used a Michele and then went over the supraspinatus and infraspinatus rotator cuff portions and freed that up. I placed a #5 MaxBraid through the rotator cuff and then attached this to be the baseplate. I irrigated again and then closed with #1 Stratafix, followed by skin argenis, followed by Prevena disposable wound incision VAC from [facility]. I did apply some vancomycin during the case. The patient was then allowed to wake from general anesthesia and taken to PACU in stable condition. /[id number] AMARA/CHLOE
[2018-04-23] MEDS: Citalopram 20 MG Tab PO SCH (21:43)
[2018-04-23] MEDS: Melatonin 3 MG Tab PO SCH (21:43)
[2018-04-24] MEDS: Acetaminophen/HYDROcodone 325-7.5 MG Tab PO PRN ×4 (02:01→19:07)
[2018-04-24] MEDS: Clindamycin Phosphate 900 MG in Sodium Chloride 0.9% 100 ML IV SCH ×2 (02:03→10:24)
[2018-04-24] MEDS: Lactated Ringers 1,000 ML IV SCH ×3 (06:42→22:37)
[2018-04-24] MEDS ORDERED: Morphine 10 MG/ML Syringe IVPUSH PRN (09:27)
--- NOTE | 2018-04-24 09:33 | PCM.PN ---
- General Info Date of Service: 04/24/18 Functional Status: Reports: Pain Controlled, Tolerating Diet, Ambulating, Incentive Spirometry - Review of Systems General: Reports: No Symptoms HEENT: Reports: No Symptoms Pulmonary: Reports: No Symptoms Cardiovascular: Reports: No Symptoms Gastrointestinal: Reports: No Symptoms Genitourinary: Reports: Other Musculoskeletal: Reports: Shoulder Pain Skin: Reports: No Symptoms Neurological: Reports: No Symptoms Psychiatric: Reports: No Symptoms - Patient Data Vitals - Most Recent: Last Vital Signs Temp 98 F 04/24/18 04:00 Pulse 90 04/24/18 04:00 Resp 18 04/24/18 04:00 BP 108/62 04/24/18 04:00 Pulse Ox 95 04/24/18 04:00 Weight - Most Recent: 200 lb I&O - Last 24 Hours: Intake & Output 04/23/18 04/24/18 04/24/18 22:59 06:59 14:59 Intake Total 976 975 Output Total 600 Balance 976 375 Lab Results Last 24 Hours: Laboratory Results - last 24 hr 04/23/18 04/23/18 04/24/18 Range/Units 08:25 17:08 07:31 WBC (4.5-12.0) X10-3/uL RBC (4.30-5.75) x10(6)uL Hgb (11.5-15.5) g/dL Hct (30.0-51.3) % MCV (80-96) fL MCH (27.7-33.6) pg MCHC (32.2-35.4) g/dL RDW (11.5-15.5) % Plt Count (125-369) X10(3)uL MPV (7.4-10.4) fL Neut % (Auto) (46-82) % Lymph % (Auto) (13-37) % [place] % (Auto) (4-12) % Eos % (Auto) (1.0-5.0) % Baso % (Auto) (0-2) % Neut # (Auto) (1.6-8.3) # Lymph # (Auto) (0.6-5.0) # [place] # (Auto) (0.0-1.3) # Eos # (Auto) (0.0-0.8) # Baso # (Auto) (0.0-0.2) # Sodium (135-145) mmol/L Potassium (3.5-5.3) mmol/L Chloride (100-110) mmol/L Carbon Dioxide (21-32) mmol/L BUN (7-18) mg/dL Creatinine (0.70-1.30) mg/dL Est Cr Clr Drug Dosing mL/min Estimated GFR (MDRD) (>60) BUN/Creatinine Ratio (9-20) Glucose (80-116) mg/dL POC Glucose 138 H 172 H (80-116) mg/dL Calcium (8.6-10.2) mg/dL Blood Type A POSITIVE Gel Antibody Screen Negative 04/24/18 04/24/18 Range/Units 08:00 08:00 WBC 9.5 (4.5-12.0) X10-3/uL RBC 2.91 L (4.30-5.75) x10(6)uL Hgb 8.6 L D (11.5-15.5) g/dL Hct 26.7 L (30.0-51.3) % MCV 91.7 (80-96) fL MCH 29.7 (27.7-33.6) pg MCHC 32.4 (32.2-35.4) g/dL RDW 12.8 (11.5-15.5) % Plt Count 248 (125-369) X10(3)uL MPV 6.7 L (7.4-10.4) fL Neut % (Auto) 68.8 (46-82) % Lymph % (Auto) 19.7 (13-37) % [place] % (Auto) 9.6 (4-12) % Eos % (Auto) 1 (1.0-5.0) % Baso % (Auto) 1 (0-2) % Neut # (Auto) 6.6 (1.6-8.3) # Lymph # (Auto) 1.9 (0.6-5.0) # [place] # (Auto) 0.9 (0.0-1.3) # Eos # (Auto) 0.1 (0.0-0.8) # Baso # (Auto) 0.0 (0.0-0.2) # Sodium 133 L (135-145) mmol/L Potassium 4.0 (3.5-5.3) mmol/L Chloride 100 (100-110) mmol/L Carbon Dioxide 29 (21-32) mmol/L BUN 22 H (7-18) mg/dL Creatinine 1.2 (0.70-1.30) mg/dL Est Cr Clr Drug Dosing 51.32 mL/min Estimated GFR (MDRD) 58 L (>60) BUN/Creatinine Ratio 18.3 (9-20) Glucose 165 H (80-116) mg/dL POC Glucose (80-116) mg/dL Calcium 7.8 L (8.6-10.2) mg/dL Blood Type Gel Antibody Screen Med Orders - Current: Current Medications Acetaminophen (Tylenol Arthritis Pain) 1,300 mg PO BID [facility] Last Admin: 04/23/18 20:44 Dose: 1,300 mg Hydrocodone Bitart/Acetaminophen ([place] 325-7.5 Mg) 1 tab PO Q4H PRN PRN Reason: Pain Last Admin: 04/24/18 06:43 Dose: 1 tab Aspirin (Halfprin) 81 mg PO DAILY [facility] Last Admin: 04/22/18 13:09 Dose: 81 mg Atenolol (Tenormin) 25 mg PO DAILY [facility] Last Admin: 04/23/18 08:06 Dose: 25 mg Atorvastatin Calcium (Lipitor) 40 mg PO DAILY [facility] Last Admin: 04/23/18 15:53 Dose: Not Given Chlorthalidone (Chlorthalidone) 12.5 mg PO DAILY [facility] Last Admin: 04/23/18 15:53 Dose: Not Given Citalopram Hydrobromide (Celexa) 20 mg PO BEDTIME [facility] Last Admin: 04/23/18 21:43 Dose: 20 mg Diphenhydramine HCl (Benadryl) 50 mg PO BEDTIME PRN PRN Reason: Sleep Last Admin: 04/22/18 21:25 Dose: 50 mg Docusate Sodium (Colace) 100 mg PO DAILY [facility] Last Admin: 04/23/18 15:53 Dose: Not Given Gabapentin (Neurontin) 600 mg PO BID [facility] Last Admin: 04/23/18 20:44 Dose: 600 mg Lactated Ringer's (Ringers, Lactated) 1,000 mls @ 125 mls/hr IV ASDIRECTED [facility] Last Admin: 04/24/18 06:42 Dose: 125 mls/hr Clindamycin Phosphate 900 mg/ (Sodium Chloride) 106 mls @ 100 mls/hr IV Q8H [facility] Stop: 04/24/18 11:04 Last Admin: 04/24/18 02:03 Dose: 100 mls/hr Lisinopril (Prinivil) 2.5 mg PO DAILY [facility] Last Admin: 04/23/18 15:54 Dose: Not Given Magnesium Oxide (Magnesium Oxide) 400 mg PO BID [facility] Last Admin: 04/23/18 21:43 Dose: 400 mg Melatonin (Melatonin) 3 mg PO BEDTIME [facility] Last Admin: 04/23/18 21:43 Dose: 3 mg Morphine Sulfate (Morphine) 2 mg IVPUSH Q4H PRN PRN Reason: Pain Last Admin: 04/23/18 07:22 Dose: 2 mg Pantoprazole Sodium (Protonix) 40 mg PO DAILY [facility] Last Admin: 04/23/18 08:06 Dose: 40 mg Psyllium Hydrophilic Mucilloid (Metamucil) 1.04 gm PO DAILY [facility] Last Admin: 04/23/18 17:02 Dose: 1.04 gm Sodium Chloride (Saline Flush) 10 ml FLUSH ASDIRECTED PRN PRN Reason: Keep Vein Open Last Admin: 04/23/18 07:24 Dose: 10 ml Discontinued Medications Bupivacaine HCl (Marcaine 0.5%) 10 ml INJECT .STK-MED ONE Stop: 04/23/18 11:37 Last Admin: 04/23/18 11:36 Dose: 10 ml Clindamycin/Sodium Chloride (Cleocin In Ns) 900 mg in 50 mls @ 100 mls/hr IV ONETIME ONE Stop: 04/23/18 09:29 Last Admin: 04/23/18 08:50 Dose: 100 mls/hr Iopamidol (Isovue-370 (76%)) 100 ml IV ONETIME ONE Stop: 04/21/18 18:47 Last Admin: 04/21/18 19:23 Dose: 100 ml Iopamidol (Isovue-370 (76%)) 100 ml IV ONETIME ONE Stop: 04/21/18 19:21 Last Admin: 04/22/18 10:50 Dose: Not Given Ketorolac Tromethamine (Toradol) 15 mg IVPUSH ONETIME ONE Stop: 04/21/18 22:20 Last Admin: 04/21/18 22:41 Dose: 15 mg Lidocaine/Epinephrine (Xylocaine 1% With Epinephrine 1:100,000) 10 ml INJECT .STK-MED ONE Stop: 04/23/18 11:36 Last Admin: 04/23/18 11:35 Dose: 10 ml Morphine Sulfate (Morphine) Confirm Administered Dose 2 mg .ROUTE .STK-MED ONE Stop: 04/23/18 03:00 Last Admin: 04/23/18 03:10 Dose: Not Given Morphine Sulfate (Morphine) Confirm Administered Dose 2 mg .ROUTE .STK-MED ONE Stop: 04/23/18 07:15 Last Admin: 04/23/18 07:21 Dose: Not Given Morphine Sulfate (Morphine) 2 mg IVPUSH ONETIME ONE Stop: 04/23/18 12:45 Last Admin: 04/23/18 12:51 Dose: 2 mg Vancomycin HCl (Vancomycin) 1,000 mg .XX .STK-MED ONE Stop: 04/23/18 11:24 Last Admin: 04/23/18 11:23 Dose: 1,000 mg - Exam General: Alert, Oriented HEENT: Pupils Equal, Mucous Membr. Moist/[place] Neck: Supple, Trachea Midline Lungs: Normal Respiratory Effort Extremities: Joint Swelling, Limited Range of Motion Skin: Warm, Dry, Intact Wound/Incisions: Healing Well, Dressing Dry and Intact, No Drainage Neurological: No New Focal Deficit Psy/Mental Status: Alert, Normal Affect, Normal Mood - Problem List & Annotations (1) Pain from implanted hardware SNOMED Code(s): 73356652 Code(s): T85.848A - PAIN DUE TO OTHER INTERNAL PROSTH DEV/GRFT, INIT Status : Acute Current Visit: Yes Qualifiers: Encounter type: initial encounter Qualified Code(s): T85.848A - Pain due to other internal prosthetic devices, implants and grafts, initial encounter - Problem List Review Problem List Initiated/Reviewed/Updated: Yes - My Orders Last 24 Hours: My Active Orders 04/23/18 12:19 OT Evaluation and Treatment [CONS] Routine PT Evaluation and Treatment [CONS] Routine Acetaminophen/HYDROcodone [[place] 325-7.5 MG] 1 tab PO Q4H PRN 04/23/18 12:20 Weight bearing status [OM.PC] Routine 04/23/18 12:21 Shoulder 1V Lt [CR] Routine 04/23/18 12:33 Drain Management [RC] QSHIFT 04/23/18 18:00 Clindamycin Phosphate [Cleocin] 900 mg Sodium Chloride 0.9% [Normal Saline] 100 ml IV Q8H 04/23/18 22:19 Communication Order [RC] 08,16,00 04/23/18 Dinner Clear Liquid Diet [DIET] 04/24/18 02:20 Insert Urinary Catheter [OM.PC] Stat 04/24/18 Lunch Consistent Carbohydrate Diet [DIET] - Plan Plan:: A: POD 1 revision RTSA Left shoulder. P: Switched from regular vac back to prevena vac. If it does not continue to work will ask rep to bring alternate unit. Hg 8.6. Systolic 108. Decreased urine output. Will hold BP meds until Dr. Bro can evaluate. Will add tramadol for pain control. d/c to home when appropriate with hospitalist 2 week f/u home health care with [facility]
--- NOTE | 2018-04-24 09:37 | PCM.DCSUM1 ---
Discharge Summary - Hospital Course Diagnosis: Stroke: No - Discharge Data Discharge Disposition: Home, Self-Care 01 Condition: Good - Discharge Diagnosis/Problem(s) (1) Pain from implanted hardware SNOMED Code(s): 63322013 ICD Code: T85.848A - PAIN DUE TO OTHER INTERNAL PROSTH DEV/GRFT, INIT Status: Acute Current Visit: Yes Qualifiers: Encounter type: initial encounter Qualified Code(s): T85.848A - Pain due to other internal prosthetic devices, implants and grafts, initial encounter - Patient Summary/Data Operative Procedure(s) Performed: revision left rtsa Complications: none Consults: Consultations 04/23/18 12:19 OT Evaluation and Treatment [CONS] Routine Please Evaluate and Treat. OT Reason for Consult: Strengthening This query below is only for informational purposes and is not editable. Admission Diagnosis/Problem: Upper extremity pain, diffuse PT Evaluation and Treatment [CONS] Routine Please Evaluate and Treat. PT Reason for Consult: Strengthening This query below is only for informational purposes and is not editable. Admission Diagnosis/Problem: Upper extremity pain, diffuse - Patient Instructions Diet: Usual Diet as Tolerated Activity: Apply Ice, Non Weight Bearing, No Strenuous Activities Driving: Do Not Drive Showering/Bathing: May Shower Wound/Incision Care: Do NOT Change Dressing Notify Provider of: Fever, Increased Pain, Swelling and Redness, Drainage, Nausea and/or Vomiting Other/Special Instructions: Will have [facility] remove vac next and apply clean dressing eod thereafter - Discharge Plan Home Medications: Home Meds Atenolol [Tenormin] 25 mg PO DAILY 01/14/15 [History] Lisinopril 2.5 mg PO DAILY 01/14/15 [History] Aspirin [Children's Aspirin] 81 mg PO DAILY 01/15/15 [History] Gabapentin [Neurontin] 600 mg PO BID 11/16/16 [History] Chlorthalidone 12.5 mg PO DAILY 03/10/18 [History] Citalopram Hydrobromide [Celexa] 20 mg PO BEDTIME 03/10/18 [History] Pantoprazole Sodium [Protonix] 40 mg PO DAILY 03/10/18 [History] atorvaSTATin Calcium [Atorvastatin Calcium] 40 mg PO DAILY 03/10/18 [History] metFORMIN HCl [Metformin HCl] 250 mg PO BID 03/10/18 [History] Acetaminophen [Tylenol Arthritis] 1,300 mg PO TID 04/21/18 [History] Docusate Sodium 100 mg PO DAILY 04/22/18 [History] Magnesium Oxide 420 mg PO BID 04/22/18 [History] Melatonin/Pyridoxine HCl (B6) [Melatonin 3 mg Tablet] 3 mg PO BEDTIME 04/22/18 [ History] Metamucil 3 In 1 2 cap PO DAILY 04/22/18 [History] Methocarbamol 750 mg PO TID 04/22/18 [History] Forms: ED Department Discharge Referrals: Anshu Reagan MD [Primary Care Provider] - - Patient Data Vitals - Most Recent: Last Vital Signs Temp 98 F 04/24/18 04:00 Pulse 90 04/24/18 04:00 Resp 18 04/24/18 04:00 BP 108/62 04/24/18 04:00 Pulse Ox 95 04/24/18 04:00 Weight - Most Recent: 200 lb I&O - Last 24 hours: Intake & Output 04/23/18 04/24/18 04/24/18 22:59 06:59 14:59 Intake Total 976 975 Output Total 600 Balance 976 375 Lab Results - Last 24 hrs: Laboratory Results - last 24 hr 04/23/18 04/24/18 04/24/18 Range/Units 17:08 07:31 08:00 WBC 9.5 (4.5-12.0) X10-3/uL RBC 2.91 L (4.30-5.75) x10(6)uL Hgb 8.6 L D (11.5-15.5) g/dL Hct 26.7 L (30.0-51.3) % MCV 91.7 (80-96) fL MCH 29.7 (27.7-33.6) pg MCHC 32.4 (32.2-35.4) g/dL RDW 12.8 (11.5-15.5) % Plt Count 248 (125-369) X10(3)uL MPV 6.7 L (7.4-10.4) fL Neut % (Auto) 68.8 (46-82) % Lymph % (Auto) 19.7 (13-37) % [place] % (Auto) 9.6 (4-12) % Eos % (Auto) 1 (1.0-5.0) % Baso % (Auto) 1 (0-2) % Neut # (Auto) 6.6 (1.6-8.3) # Lymph # (Auto) 1.9 (0.6-5.0) # [place] # (Auto) 0.9 (0.0-1.3) # Eos # (Auto) 0.1 (0.0-0.8) # Baso # (Auto) 0.0 (0.0-0.2) # Sodium (135-145) mmol/L Potassium (3.5-5.3) mmol/L Chloride (100-110) mmol/L Carbon Dioxide (21-32) mmol/L BUN (7-18) mg/dL Creatinine (0.70-1.30) mg/dL Est Cr Clr Drug Dosing mL/min Estimated GFR (MDRD) (>60) BUN/Creatinine Ratio (9-20) Glucose (80-116) mg/dL POC Glucose 138 H 172 H (80-116) mg/dL Calcium (8.6-10.2) mg/dL 04/24/18 Range/Units 08:00 WBC (4.5-12.0) X10-3/uL RBC (4.30-5.75) x10(6)uL Hgb (11.5-15.5) g/dL Hct (30.0-51.3) % MCV (80-96) fL MCH (27.7-33.6) pg MCHC (32.2-35.4) g/dL RDW (11.5-15.5) % Plt Count (125-369) X10(3)uL MPV (7.4-10.4) fL Neut % (Auto) (46-82) % Lymph % (Auto) (13-37) % [place] % (Auto) (4-12) % Eos % (Auto) (1.0-5.0) % Baso % (Auto) (0-2) % Neut # (Auto) (1.6-8.3) # Lymph # (Auto) (0.6-5.0) # [place] # (Auto) (0.0-1.3) # Eos # (Auto) (0.0-0.8) # Baso # (Auto) (0.0-0.2) # Sodium 133 L (135-145) mmol/L Potassium 4.0 (3.5-5.3) mmol/L Chloride 100 (100-110) mmol/L Carbon Dioxide 29 (21-32) mmol/L BUN 22 H (7-18) mg/dL Creatinine 1.2 (0.70-1.30) mg/dL Est Cr Clr Drug Dosing 51.32 mL/min Estimated GFR (MDRD) 58 L (>60) BUN/Creatinine Ratio 18.3 (9-20) Glucose 165 H (80-116) mg/dL POC Glucose (80-116) mg/dL Calcium 7.8 L (8.6-10.2) mg/dL Med Orders - Current: Current Medications Acetaminophen (Tylenol Arthritis Pain) 1,300 mg PO BID [facility] Last Admin: 04/23/18 20:44 Dose: 1,300 mg Hydrocodone Bitart/Acetaminophen ([place] 325-7.5 Mg) 1 tab PO Q4H PRN PRN Reason: Pain Last Admin: 04/24/18 06:43 Dose: 1 tab Aspirin (Halfprin) 81 mg PO DAILY [facility] Last Admin: 04/22/18 13:09 Dose: 81 mg Atenolol (Tenormin) 25 mg PO DAILY [facility] Last Admin: 04/23/18 08:06 Dose: 25 mg Atorvastatin Calcium (Lipitor) 40 mg PO DAILY [facility] Last Admin: 04/23/18 15:53 Dose: Not Given Chlorthalidone (Chlorthalidone) 12.5 mg PO DAILY [facility] Last Admin: 04/23/18 15:53 Dose: Not Given Citalopram Hydrobromide (Celexa) 20 mg PO BEDTIME [facility] Last Admin: 04/23/18 21:43 Dose: 20 mg Diphenhydramine HCl (Benadryl) 50 mg PO BEDTIME PRN PRN Reason: Sleep Last Admin: 04/22/18 21:25 Dose: 50 mg Docusate Sodium (Colace) 100 mg PO DAILY [facility] Last Admin: 04/23/18 15:53 Dose: Not Given Gabapentin (Neurontin) 600 mg PO BID [facility] [place] Last Admin: 04/23/18 20:44 Dose: 600 mg Lactated Ringer's (Ringers, Lactated) 1,000 mls @ 125 mls/hr IV ASDIRECTED [facility] [place] Last Admin: 04/24/18 06:42 Dose: 125 mls/hr Clindamycin Phosphate 900 mg/ (Sodium Chloride) 106 mls @ 100 mls/hr IV Q8H [facility] [place] Stop: 04/24/18 11:04 Last Admin: 04/24/18 02:03 Dose: 100 mls/hr Lisinopril (Prinivil) 2.5 mg PO DAILY [facility] [place] Last Admin: 04/23/18 15:54 Dose: Not Given Magnesium Oxide (Magnesium Oxide) 400 mg PO BID [facility] Last Admin: 04/23/18 21:43 Dose: 400 mg Melatonin (Melatonin) 3 mg PO BEDTIME [facility] [place] Last Admin: 04/23/18 21:43 Dose: 3 mg Morphine Sulfate (Morphine) 2 mg IVPUSH Q4H PRN PRN Reason: Pain Pantoprazole Sodium (Protonix) 40 mg PO DAILY [facility] [place] Last Admin: 04/23/18 08:06 Dose: 40 mg Psyllium Hydrophilic Mucilloid (Metamucil) 1.04 gm PO DAILY [facility] [place] Last Admin: 04/23/18 17:02 Dose: 1.04 gm Sodium Chloride (Saline Flush) 10 ml FLUSH ASDIRECTED PRN PRN Reason: Keep Vein Open Last Admin: 04/23/18 07:24 Dose: 10 ml Discontinued Medications Bupivacaine HCl (Marcaine 0.5%) 10 ml INJECT .STK-MED ONE Stop: 04/23/18 11:37 Last Admin: 04/23/18 11:36 Dose: 10 ml Clindamycin/Sodium Chloride (Cleocin In Ns) 900 mg in 50 mls @ 100 mls/hr IV ONETIME ONE Stop: 04/23/18 09:29 Last Admin: 04/23/18 08:50 Dose: 100 mls/hr Iopamidol (Isovue-370 (76%)) 100 ml IV ONETIME ONE Stop: 04/21/18 18:47 Last Admin: 04/21/18 19:23 Dose: 100 ml Iopamidol (Isovue-370 (76%)) 100 ml IV ONETIME ONE Stop: 04/21/18 19:21 Last Admin: 04/22/18 10:50 Dose: Not Given Ketorolac Tromethamine (Toradol) 15 mg IVPUSH ONETIME ONE Stop: 04/21/18 22:20 Last Admin: 04/21/18 22:41 Dose: 15 mg Lidocaine/Epinephrine (Xylocaine 1% With Epinephrine 1:100,000) 10 ml INJECT .STK-MED ONE Stop: 04/23/18 11:36 Last Admin: 04/23/18 11:35 Dose: 10 ml Morphine Sulfate (Morphine) 2 mg IVPUSH Q4H PRN PRN Reason: Pain Last Admin: 04/23/18 07:22 Dose: 2 mg Morphine Sulfate (Morphine) Confirm Administered Dose 2 mg .ROUTE .STK-MED ONE Stop: 04/23/18 03:00 Last Admin: 04/23/18 03:10 Dose: Not Given Morphine Sulfate (Morphine) Confirm Administered Dose 2 mg .ROUTE .STK-MED ONE Stop: 04/23/18 07:15 Last Admin: 04/23/18 07:21 Dose: Not Given Morphine Sulfate (Morphine) 2 mg IVPUSH ONETIME ONE Stop: 04/23/18 12:45 Last Admin: 04/23/18 12:51 Dose: 2 mg Vancomycin HCl (Vancomycin) 1,000 mg .XX .STK-MED ONE Stop: 04/23/18 11:24 Last Admin: 04/23/18 11:23 Dose: 1,000 mg
[2018-04-24] MEDS ORDERED: Morphine 2 MG/ML Syringe ONE ×2 (09:52→16:17)
[2018-04-24] MEDS: Morphine 10 MG/ML Syringe IVPUSH PRN ×2 (10:06→16:20)
[2018-04-24] MEDS: Docusate Sodium 100 MG Cap PO SCH (10:11)
[2018-04-24] MEDS: Aspirin 81 MG Tab.EC PO SCH (10:11)
[2018-04-24] MEDS: atorvaSTATin 40 MG Tab PO SCH (10:12)
[2018-04-24] MEDS: Magnesium Oxide 400 MG Tab PO SCH ×2 (10:12→20:58)
[2018-04-24] MEDS: Psyllium 0.52 GM Cap PO SCH (10:12)
[2018-04-24] MEDS: Pantoprazole 40 MG Tab.CR PO SCH (10:13)
[2018-04-24] MEDS: Gabapentin 600 MG Tab PO SCH ×2 (10:13→20:58)
[2018-04-24] MEDS: traMADol 50 MG Tab PO PRN ×2 (11:12→17:36)
[2018-04-24] MEDS: Acetaminophen 650 MG Tab.ER PO SCH ×2 (11:13→20:58)
[2018-04-24] MEDS: Chlorthalidone 25 MG Tab PO SCH (14:35)
[2018-04-24] MEDS: Lisinopril 2.5 MG Tab PO SCH (14:35)
[2018-04-24] MEDS: Atenolol 25 MG Tab PO SCH (14:36)
[2018-04-24] MEDS: metFORMIN 500 MG Tab PO SCH (17:36)
[2018-04-24] MEDS ORDERED: metFORMIN 500 MG Tab.ER PO SCH (18:00)
[2018-04-24] MEDS: Melatonin 3 MG Tab PO SCH (20:58)
[2018-04-24] MEDS: Citalopram 20 MG Tab PO SCH (20:58)
[2018-04-24] MEDS ORDERED: Tamsulosin 0.4 MG Cap.ER PO SCH (21:00)
[2018-04-25] MEDS: traMADol 50 MG Tab PO PRN ×2 (00:29→08:17)
[2018-04-25] MEDS: Lactated Ringers 1,000 ML IV SCH (06:22)
--- NOTE | 2018-04-25 07:01 | PN ---
DATE SEEN: 04/24/2018 Koby Quach is an 83-year-old, male underwent reconstruction of left shoulder replacement surgery. Dr. Ravi Manzanares, orthopedic provider of record, performed on 04/23/2018. He had a pretty good night. Has not voided through the day yesterday, underwent catheterization about 2:30 in the morning 600 mL. Has not voided since at. He is getting IV fluids, Ringer's lactate, status post surgery. Hemoglobin postoperative 8.6. White count 9500. Drinking well, otherwise well. Blood pressure has been a little bit labile, under observation. 97/58, 108/62. Otherwise feels well. He has had no previous voiding difficulties in the past. Nocturia x1. Prostate by report always been fine. OBJECTIVE: VITAL SIGNS: Stable. 36.6, 90.718 kg, pulse of 90, 108/62, mean blood pressure of 77, 18 is the respiration, 95% on room air. GENERAL: Appears comfortable. NECK: Benign. Thyroid small. CHEST: Clear in all lung mat[place]os. HEART: Regular. Dressing in left shoulder in place. ABDOMEN: Benign. ASSESSMENT: Postoperative care, urinary retention, med surgery, anesthesia, narcotics. PLAN: Ultram for pain. MS Contin for breakthrough pain. Complementary care and well being. We will continue IV fluids today. We will hold the lisinopril, chlorthalidone. We will restart metformin 250 b.i.d., complementary care and well being, watch hydration and well being, follow through the day. /[id number] LO/CHLOE
[2018-04-25] MEDS: Docusate Sodium 100 MG Cap PO SCH (08:19)
[2018-04-25] MEDS: atorvaSTATin 40 MG Tab PO SCH (08:19)
[2018-04-25] MEDS: Aspirin 81 MG Tab.EC PO SCH (08:19)
[2018-04-25] MEDS: Gabapentin 600 MG Tab PO SCH (08:20)
[2018-04-25] MEDS: Psyllium 0.52 GM Cap PO SCH (08:20)
[2018-04-25] MEDS: Magnesium Oxide 400 MG Tab PO SCH (08:20)
[2018-04-25] MEDS: Pantoprazole 40 MG Tab.CR PO SCH (08:21)
[2018-04-25] MEDS: Acetaminophen 650 MG Tab.ER PO SCH (08:21)
[2018-04-25] MEDS: metFORMIN 500 MG Tab PO SCH (08:33)
[2018-04-25 12:26] VITALS: BP 129/61
--- NOTE | 2018-04-26 06:29 | DISCH ---
DISCHARGE DATE: 04/25/2018 Koby Quach is an 83-year-old male admitted to [facility] with severe therapy-resistant left arm pain. He had a previous left shoulder arthroplasty in February of 2018. Complicated swelling was present. A vascular study revealed no DVT. Radiographs showed radiographic findings of concern, requiring further intervention. He has been followed by Dr. Ravi Manzanares in Orthopedics. He underwent on 04/23/2018 revision reverse shoulder arthroplasty with exchange of both the glenoid and humeral components under endotracheal intubation. Blood loss was 450 mL. The surgery went well without conflict. POSTOPERATIVE LABORATORY STUDIES: Hemoglobin, 04/24/2018, 8.6. Electrolytes are satisfactory. Blood sugars are as noted. Metformin was returned to his medical treatment 24 hours after his recent IV contrast therapy. Pain was an issue of concern initially; IV morphine and hydrocodone, reluctant to continue, and tramadol for pain. He has been given Tylenol 1500 mg b.i.d. through his entire course. Pain was controlled without difficulty into his second postoperative day. Some voiding difficulties on the initial first day, required catheterization x2, 600 and 600 mL respectively. He was given a dose of Flomax 0.4 mg on the evening of 04/24/2018, voided well through the night, with greater frequency and no urinary symptoms of consequence. At the time of discharge on 04/25/2018, pain was controlled with Tylenol and tramadol, no request for hydrocodone. We provided a script for Flomax if he would like an opportunity pending flow and well being. Fluids, fluid hydration, and voiding often. A drain is in place, electronically monitored, 7 days' duration. He is aware of the concerns and needs in that regard. Home health is in place. FOLLOWUP: Appointment with Dr. Rodrigues in 1 week's time at [facility]. SURGICAL PROCEDURE: 04/23/2018, revision reverse shoulder arthroplasty. /[id number] LO/CHLOE
== END 2018-04-25 10:35 | disposition home or self-care (01) | DRG 483 ==
LOC: FB.ED 16:53 → FB.MS 22:33 → OBSVTOIN 04-22 13:55
PROVIDERS: ADMIT Orthopaedic Surgery; ATTEND Family Medicine
PROC: 0RPK0JZ Removal of Synthetic Substitute from Left Shoulder Joint, Open Approach (ICD-10-PCS; principal; 2018-04-23)
PROC: 0RRK00Z Replacement of Left Shoulder Joint with Reverse Ball and Socket Synthetic Substitute, Open Approach (ICD-10-PCS; principal; 2018-04-23)
DX: T84.84XA Pain due to internal orthopedic prosthetic devices, implants and grafts, initial encounter (principal); Y83.8 Other surgical procedures as the cause of abnormal reaction of the patient, or of later complication, without mention of misadventure at the time of the procedure; I10 Essential (primary) hypertension; F39 Unspecified mood [affective] disorder; E11.9 Type 2 diabetes mellitus without complications; E78.00 Pure hypercholesterolemia, unspecified; H54.7 Unspecified visual loss; H91.90 Unspecified hearing loss, unspecified ear; K21.9 Gastro-esophageal reflux disease without esophagitis; N40.1 Benign prostatic hyperplasia with lower urinary tract symptoms; R35.1 Nocturia; G89.29 Other chronic pain; M54.9 Dorsalgia, unspecified; M19.90 Unspecified osteoarthritis, unspecified site; F32.9 Major depressive disorder, single episode, unspecified; L30.9 Dermatitis, unspecified; E86.0 Dehydration; R79.1 Abnormal coagulation profile; R33.8 Other retention of urine; Z79.84 Long term (current) use of oral hypoglycemic drugs; Z79.82 Long term (current) use of aspirin; Z79.899 Other long term (current) drug therapy; Z96.642 Presence of left artificial hip joint; Z96.612 Presence of left artificial shoulder joint; Z87.891 Personal history of nicotine dependence; Z88.1 Allergy status to other antibiotic agents; Z88.0 Allergy status to penicillin
CPT/HCPCS: 36415; 51701; 70450; 71275; 72125; 73020-LT; 73200-LT; 80048; 81001; 82550; 82962; 84484; 85025; 85379; 85610; 86850; 86900; 86901; 93005; 93971-LT; 96374; 97161-GP; 99284; 99285; A9270-GY; J1885; J2270; J3370; J3490; J7030; J7050; J7120; Q9967; S0077

== ENCOUNTER 2018-06-23 01:00 | Inpatient (IN) | payer OTHER, MEDICARE, BC ==
[2018-06-23] MEDS ORDERED: Acetaminophen 325 MG Tab PO PRN (01:17)
--- NOTE | 2018-06-23 01:17 | EDM.PDOC ---
ED HPI GENERAL MEDICAL PROBLEM - General Stated Complaint: RT FOREHEAD LACERATION Time Seen by Provider: 06/23/18 01:15 Source of Information: Reports: Patient History Limitations: Reports: No Limitations - History of Present Illness INITIAL COMMENTS - FREE TEXT/NARRATIVE: Koby is an 83-year-old male that fell tonight. He states that he was getting ready for bed and was seated at the side of his bed when he felt dizzy and suddenly fell to the ground. Complains of no headache but has mild soreness of the left forearm. He sustained a bruise to the right forehead area. He has no chest pain or shortness of breath. Normal lives alone. low back discomfort Pain Score (Numeric/FACES): 6 - Related Data Allergies Allergy/AdvReac Type Severity Reaction Status Date / Time amoxicillin [Amoxicillin] Allergy Diarrhea Verified 06/23/18 01:29 Penicillins Allergy Diarrhea Verified 06/23/18 01:29 Home Meds: Home Meds Atenolol [Tenormin] 25 mg PO DAILY 01/14/15 [History] Aspirin [Children's Aspirin] 81 mg PO DAILY 01/15/15 [History] Gabapentin [Neurontin] 600 mg PO BID 11/16/16 [History] Chlorthalidone 12.5 mg PO DAILY 03/10/18 [History] Pantoprazole Sodium [Protonix] 40 mg PO DAILY 03/10/18 [History] metFORMIN HCl [Metformin HCl] 250 mg PO BID 03/10/18 [History] Acetaminophen [Tylenol Arthritis] 650 mg PO Q4H PRN 04/21/18 [History] Docusate Sodium 100 mg PO BID PRN 04/22/18 [History] Magnesium Oxide 420 mg PO BID 04/22/18 [History] Melatonin 3 mg PO BEDTIME tablet 04/25/18 [Rx] traMADol [Ultram] 50 mg PO Q6H PRN #40 tablet 04/25/18 [Rx] Calcium Polycarbophil [Fibercon] 1,250 mg PO DAILY 06/23/18 [History] Citalopram [Citalopram HBr] 20 mg PO BEDTIME 06/23/18 [History] Lisinopril 2.5 mg PO DAILY 06/23/18 [History] Simvastatin [Zocor] 40 mg PO BEDTIME 06/23/18 [History] Past Medical History - Past Health History Medical/Surgical History: Denies Medical/Surgical History HEENT History: Reports: Cataract, Hard of Hearing, Impaired Vision Cardiovascular History: Reports: Heart Murmur, High Cholesterol, Hypertension Respiratory History: Reports: None Gastrointestinal History: Reports: GERD Genitourinary History: Reports: BPH 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 Dermatologic History: Reports: Other (See Below) Other Dermatologic History: DERMATITIS, UNSPECIFIED - Infectious Disease History Infectious Disease History: Reports: Chicken Pox, Measles, Mumps - Past Surgical History Head Surgeries/Procedures: Reports: None HEENT Surgical History: Reports: Cataract Surgery, Tonsillectomy Other Musculoskeletal Surgeries/Procedures:: L [place], R TSA and hx of OA Social & Family History - Family History Family Medical History: Noncontributory - Caffeine Use Caffeine Use: Reports: Coffee Other Caffeine Use: Pot ful a day ED ROS GENERAL - Review of Systems Review Of Systems: ROS reveals no pertinent complaints other than HPI. ED EXAM, DIZZINESS - Physical Exam Exam: See Below Exam Limited By: No Limitations General Appearance: Alert Ears: Normal External Exam Nose: Normal Inspection Head Exam: Normocephalic, Facial Swelling (forehead) Neck: Normal Inspection Respiratory/Chest: No Respiratory Distress, Lungs Clear, Normal Breath Sounds, No Accessory Muscle Use, Chest Non-Tender Cardiovascular: Regular Rate, Rhythm, Systolic Murmur Course - Vital Signs Last Recorded V/S: Last Vital Signs Temp 97.9 F 06/23/18 12:00 Pulse 95 06/23/18 12:00 Resp 16 06/23/18 12:00 BP 138/70 06/23/18 12:00 Pulse Ox 96 06/23/18 12:00 - Orders/Labs/Meds Orders: Active Orders 24 hr Category Date Time Status Patient Status [ADT] Routine ADT 06/23/18 01:17 Active Accu Check [Blood Glucose Check, Bedside] [RC] BIDMEALS Care 06/23/18 09:00 Active Height and Weight [RC] 06 Care 06/23/18 01:17 Active Oxygen Therapy [RC] PRN Care 06/23/18 01:17 Active Telemetry Monitoring [Cardiac Monitoring] [RC] .As Care 06/23/18 08:48 Active Directed Up With Assistance [RC] ASDIRECTED Care 06/23/18 01:17 Active Vital Signs [RC] 08,12,16,20,00,04 Care 06/23/18 01:17 Active Consult to Traveling Representative [CONS] Routine Cons 06/23/18 09:01 Active OT Evaluation and Treatment [CONS] Routine Cons 06/23/18 01:17 Active PT Evaluation and Treatment [CONS] Routine Cons 06/23/18 01:17 Active SCD [Sequential Compression Device] [OM.PC] Routine Oth 06/23/18 09:00 Ordered Resuscitation Status Routine Resus Stat 06/23/18 01:17 Ordered EKG 12 Lead [EK] Stat Ther 06/23/18 01:17 Ordered Labs: Laboratory Tests 06/23/18 06/23/18 06/23/18 Range/Units 06:05 06:05 06:05 WBC 9.4 (4.5-12.0) X10-3/uL RBC 3.80 L (4.30-5.75) x10(6)uL Hgb 10.6 L (11.5-15.5) g/dL Hct 33.0 (30.0-51.3) % MCV 86.8 (80-96) fL MCH 28.0 (27.7-33.6) pg MCHC 32.2 (32.2-35.4) g/dL RDW 14.4 (11.5-15.5) % Plt Count 201 (125-369) X10(3)uL MPV 7.4 (7.4-10.4) fL Neut % (Auto) 58.4 (46-82) % Lymph % (Auto) 31.8 (13-37) % Ed[place] % (Auto) 6.5 (4-12) % Eos % (Auto) 2 (1.0-5.0) % Baso % (Auto) 1 (0-2) % Neut # (Auto) 5.5 (1.6-8.3) # Lymph # (Auto) 3.0 (0.6-5.0) # [place] # (Auto) 0.6 (0.0-1.3) # Eos # (Auto) 0.2 (0.0-0.8) # Baso # (Auto) 0.1 (0.0-0.2) # Sodium 139 (135-145) mmol/L Potassium 3.4 L (3.5-5.3) mmol/L Chloride 102 (100-110) mmol/L Carbon Dioxide 28 (21-32) mmol/L BUN 31 H (7-18) mg/dL Creatinine 1.1 (0.70-1.30) mg/dL Est Cr Clr Drug Dosing 54.30 mL/min Estimated GFR (MDRD) > 60 (>60) BUN/Creatinine Ratio 28.2 H (9-20) Glucose 133 H (80-116) mg/dL Calcium 9.4 (8.6-10.2) mg/dL Phosphorus 4.4 (2.6-4.6) mg/dL Troponin I < 0.017 L (<0.017-0.056) ng/mL Meds: Medications Discontinued Medications Generic Name Dose Route Start Last Admin Trade Name Freq PRN Reason Stop Dose Admin Acetaminophen 650 mg 06/23/18 01:17 Tylenol PO Q4H PRN Pain (Mild 1-3)/fever Aspirin 81 mg 06/23/18 09:00 Aspirin PO DAILY [facility] Atenolol 25 mg 06/23/18 09:00 Tenormin PO DAILY [facility] Calcium Polycarbophil 1,250 mg 06/23/18 09:00 Fibercon PO DAILY [facility] Chlorthalidone 12.5 mg 06/23/18 09:00 Chlorthalidone PO DAILY [facility] Citalopram Hydrobromide 20 mg 06/23/18 21:00 Celexa PO BEDTIME [facility] Docusate Sodium 100 mg 06/23/18 08:48 Colace PO BID PRN Constipation Gabapentin 600 mg 06/23/18 09:00 Neurontin PO BID [facility] Sodium Chloride 1,000 mls @ 75 mls/hr 06/23/18 13:00 06/23/18 13:05 Normal Saline IV 75 mls/hr ASDIRECTED MELISSA Administration Lisinopril 2.5 mg 06/23/18 09:00 Prinivil PO DAILY [facility] Melatonin 3 mg 06/23/18 21:00 Melatonin PO BEDTIME [facility] Metformin HCl 250 mg 06/23/18 09:00 Glucophage PO BID MELISSA Non-Formulary Medication 420 mg 06/23/18 09:00 Magnesium Oxide [Magnesium Oxide] PO BID MELISSA Non-Formulary Medication 40 mg 06/23/18 21:00 Simvastatin [Zocor] PO BEDTIME MELISSA Pantoprazole Sodium 40 mg 06/23/18 09:00 Protonix PO DAILY MELISSA Tramadol HCl 50 mg 06/23/18 08:48 Ultram PO Q6H PRN Pain Departure - Departure Time of Disposition: 01:15 Disposition: Admitted As Inpatient 67 Condition: Good Clinical Impression: Left arm pain, Pain - Discharge Information - Problem List & Annotations (1) Head injury SNOMED Code(s): 14864758 Code(s): S09.90XA - UNSPECIFIED INJURY OF HEAD, INITIAL ENCOUNTER Status: Acute Qualifiers: Encounter type: initial encounter Qualified Code(s): S09.90XA - Unspecified injury of head, initial encounter (2) Accidental fall SNOMED Code(s): 072609796 Code(s): W19.XXXA - UNSPECIFIED FALL, INITIAL ENCOUNTER Status: Acute Qualifiers: Encounter type: initial encounter Qualified Code(s): W19.XXXA - Unspecified fall, initial encounter - Problem List Review Problem List Initiated/Reviewed/Updated: Yes - My Orders Last 24 Hours: My Active Orders 06/23/18 01:17 Patient Status [ADT] Routine Height and Weight [RC] 06 Oxygen Therapy [RC] PRN Up With Assistance [RC] ASDIRECTED Vital Signs [RC] 08,12,16,20,00,04 OT Evaluation and Treatment [CONS] Routine PT Evaluation and Treatment [CONS] Routine EKG 12 Lead [EK] Stat - Assessment/Plan Last 24 Hours: My Active Orders 06/23/18 01:17 Patient Status [ADT] Routine Height and Weight [RC] 06 Oxygen Therapy [RC] PRN Up With Assistance [RC] ASDIRECTED Vital Signs [RC] 08,12,16,20,00,04 OT Evaluation and Treatment [CONS] Routine PT Evaluation and Treatment [CONS] Routine EKG 12 Lead [EK] Stat Plan: Admit for PT/OT evaluation.Consider CT in AM,nor need for emergent scan tonight
[2018-06-23] MEDS ORDERED: traMADol 50 MG Tab PO PRN (08:48)
[2018-06-23] MEDS ORDERED: Acetaminophen 650 MG Tab.ER PO PRN (08:48)
[2018-06-23] MEDS ORDERED: Docusate Sodium 100 MG Cap PO PRN (08:48)
[2018-06-23] MEDS ORDERED: Calcium Polycarbophil 625 MG Tab PO SCH (09:00)
[2018-06-23] MEDS ORDERED: metFORMIN 500 MG Tab PO SCH (09:00)
[2018-06-23] MEDS ORDERED: Lisinopril 2.5 MG Tab PO SCH (09:00)
[2018-06-23] MEDS ORDERED: Atenolol 25 MG Tab PO SCH (09:00)
[2018-06-23] MEDS ORDERED: Chlorthalidone 25 MG Tab PO SCH (09:00)
[2018-06-23] MEDS ORDERED: Non-Formulary Medication 1 Each (Magnesium Oxide [Magnesium Oxide] 420 MG) PO SCH (09:00)
[2018-06-23] MEDS ORDERED: Gabapentin 600 MG Tab PO SCH (09:00)
[2018-06-23] MEDS ORDERED: Pantoprazole 40 MG Tab.CR PO SCH (09:00)
[2018-06-23] MEDS ORDERED: Aspirin 81 MG Tab.Chew PO SCH (09:00)
--- NOTE | 2018-06-23 09:00 | PCM.HP ---
H&P History of Present Illness - General Date of Service: 06/23/18 Admit Problem/Dx: Admission Diagnosis/Problem Admission Diagnosis/Problem Fall Source of Information: Patient History Limitations: Reports: No Limitations - History of Present Illness Initial Comments - Free Text/Narative: This is an 83-year-old male patient that was getting ready to go to bed last night in his home. Says he went to get into bed and they see no he fell to the ground and hit his head on the carpet. He said he got tangled up in his walker. Luckily his phone was close by and he called 911 and came into the ER by ambulance and was admitted for observation. No head CT was done. Patient states he was in the hospital in April for rehabilitation for her shoulder surgery. But he states he's been getting progressively weaker recently. He normally walks with a cane but now is walking with a walker. The nurse noted that he was profoundly weak compared to when he was here a little over a month ago. He says he has no other problems going on. He denies any runny nose, sore throat, chest pain, shortness of breath, GI or symptoms. - Related Data Allergies/Adverse Reactions: Allergies Allergy/AdvReac Type Severity Reaction Status Date / Time amoxicillin [Amoxicillin] Allergy Diarrhea Verified 06/23/18 01:29 Penicillins Allergy Diarrhea Verified 06/23/18 01:29 Home Medications: Home Meds Atenolol [Tenormin] 25 mg PO DAILY 01/14/15 [History] Aspirin [Children's Aspirin] 81 mg PO DAILY 01/15/15 [History] Gabapentin [Neurontin] 600 mg PO BID 11/16/16 [History] Chlorthalidone 12.5 mg PO DAILY 03/10/18 [History] Pantoprazole Sodium [Protonix] 40 mg PO DAILY 03/10/18 [History] metFORMIN HCl [Metformin HCl] 250 mg PO BID 03/10/18 [History] Acetaminophen [Tylenol Arthritis] 650 mg PO Q4H PRN 04/21/18 [History] Docusate Sodium 100 mg PO BID PRN 04/22/18 [History] Magnesium Oxide 420 mg PO BID 04/22/18 [History] Melatonin 3 mg PO BEDTIME tablet 04/25/18 [Rx] traMADol [Ultram] 50 mg PO Q6H PRN #40 tablet 04/25/18 [Rx] Calcium Polycarbophil [Fibercon] 1,250 mg PO DAILY 06/23/18 [History] Citalopram [Citalopram HBr] 20 mg PO BEDTIME 06/23/18 [History] Lisinopril 2.5 mg PO DAILY 06/23/18 [History] Simvastatin [Zocor] 40 mg PO BEDTIME 06/23/18 [History] Past Medical History - Past Health History Medical/Surgical History: Denies Medical/Surgical History HEENT History: Reports: Cataract, Hard of Hearing, Impaired Vision Cardiovascular History: Reports: Heart Murmur, High Cholesterol, Hypertension Respiratory History: Reports: None Gastrointestinal History: Reports: GERD Genitourinary History: Reports: BPH [employer]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 Dermatologic History: Reports: Other (See Below) Other Dermatologic History: DERMATITIS, UNSPECIFIED - Infectious Disease History Infectious Disease History: Reports: Chicken Pox, Measles, Mumps - Past Surgical History Head Surgeries/Procedures: Reports: None HEENT Surgical History: Reports: Cataract Surgery, Tonsillectomy Other Musculoskeletal Surgeries/Procedures:: left hip and surgery to both shoulders. Social & Family History - Family History Family Medical History: Noncontributory - Tobacco Use Smoking Status *Q: Former Smoker Used Tobacco, but Quit: Yes Month/Year Tobacco Last Used: in 1979 Second Hand Smoke Exposure: No - Caffeine Use Caffeine Use: Reports: Coffee Other Caffeine Use: Pot ful a day - Recreational Drug Use Recreational Drug Use: No H&P Review of Systems - Review of Systems: Review Of Systems: See Below General: Reports: Weakness HEENT: Reports: No Symptoms Pulmonary: Reports: No Symptoms Cardiovascular: Reports: No Symptoms Gastrointestinal: Reports: No Symptoms Genitourinary: Reports: No Symptoms Musculoskeletal: Reports: Other (Says left arm is normally week sentences shoulder surgery.) Skin: Reports: Other (Abrasion on his forehead.) Psychiatric: Reports: No Symptoms Neurological: Reports: No Symptoms Hematologic/Lymphatic: Reports: No Symptoms Immunologic: Reports: No Symptoms Exam - Exam Exam: See Below - Vital Signs Vital Signs: Last Vital Signs Temp 97.7 F 06/23/18 07:46 Pulse 75 06/23/18 07:46 Resp 16 06/23/18 07:46 BP 137/68 06/23/18 07:46 Pulse Ox 97 06/23/18 07:46 Weight: 191 lb 8 oz - Exam General: Alert, Oriented, Cooperative HEENT: PERRLA, Hearing Intact, Mucosa Moist & [place], Posterior Pharynx Clear, TMs Clear Neck: Supple, Trachea Midline. No: Lymphadenopathy, Carotid Bruit Lungs: Clear to Auscultation, Normal Respiratory Effort. No: Crackles, Rales, Rhonchi, Rub Cardiovascular: Regular Rate, Regular Rhythm, Normal S1, Normal S2. No: Irregular Rhythm, Bradycardia, Tachycardia, Systolic Murmur, Diastolic Murmur GI/Abdominal Exam: Normal Bowel Sounds, Soft, Non-Tender, No Distention Extremities: Normal Inspection, Non-Tender, No Pedal Edema Neurological: Normal Speech, Normal Tone, Other (Some weakness left arm strength. Needs lots of assist to walk even with a walker.) Neuro Extensive - Mental Status: Alert, Oriented x3, Normal Mood/Affect, Normal Cognition, Memory Intact Neuro Extensive - Motor, Sensory, Reflexes: No: Normal Gait Psychiatric: Alert, Normal Affect, Normal Mood - Patient Data Lab Results Last 24 hrs: Laboratory Results - last 24 hr 06/23/18 06/23/18 06/23/18 Range/Units 06:05 06:05 06:05 WBC 9.4 (4.5-12.0) X10-3/uL RBC 3.80 L (4.30-5.75) x10(6)uL Hgb 10.6 L (11.5-15.5) g/dL Hct 33.0 (30.0-51.3) % MCV 86.8 (80-96) fL MCH 28.0 (27.7-33.6) pg MCHC 32.2 (32.2-35.4) g/dL RDW 14.4 (11.5-15.5) % Plt Count 201 (125-369) X10(3)uL MPV 7.4 (7.4-10.4) fL Neut % (Auto) 58.4 (46-82) % Lymph % (Auto) 31.8 (13-37) % [place] % (Auto) 6.5 (4-12) % Eos % (Auto) 2 (1.0-5.0) % Baso % (Auto) 1 (0-2) % Neut # (Auto) 5.5 (1.6-8.3) # Lymph # (Auto) 3.0 (0.6-5.0) # [place] # (Auto) 0.6 (0.0-1.3) # Eos # (Auto) 0.2 (0.0-0.8) # Baso # (Auto) 0.1 (0.0-0.2) # Sodium 139 (135-145) mmol/L Potassium 3.4 L (3.5-5.3) mmol/L Chloride 102 (100-110) mmol/L Carbon Dioxide 28 (21-32) mmol/L BUN 31 H (7-18) mg/dL Creatinine 1.1 (0.70-1.30) mg/dL Est Cr Clr Drug Dosing 54.30 mL/min Estimated GFR (MDRD) > 60 (>60) BUN/Creatinine Ratio 28.2 H (9-20) Glucose 133 H (80-116) mg/dL Calcium 9.4 (8.6-10.2) mg/dL Phosphorus 4.4 (2.6-4.6) mg/dL Troponin I < 0.017 L (<0.017-0.056) ng/mL Result Diagrams: 06/23/18 06:05 06/23/18 06:05 - Problem List (1) Weakness SNOMED Code(s): 44964262 ICD Code: R53.1 - WEAKNESS Status: Acute Current Visit: Yes (2) Palliative care status SNOMED Code(s): 414637227 ICD Code: Z51.5 - ENCOUNTER FOR PALLIATIVE CARE Status: Acute Current Visit: Yes (3) Accidental fall SNOMED Code(s): 229770447 ICD Code: W19.XXXA - UNSPECIFIED FALL, INITIAL ENCOUNTER Status: Acute Current Visit: No Qualifiers: Encounter type: initial encounter Qualified Code(s): W19.XXXA - Unspecified fall, initial encounter Problem List Initiated/Reviewed/Updated: Yes Orders Last 24hrs: Active Orders 24 hr Category Date Time Status Patient Status [ADT] Routine ADT 06/23/18 01:17 Active Height and Weight [RC] 06 Care 06/23/18 01:17 Active Oxygen Therapy [RC] PRN Care 06/23/18 01:17 Active Telemetry Monitoring [Cardiac Monitoring] [RC] .As Care 06/23/18 08:48 Ordered Directed Up With Assistance [RC] ASDIRECTED Care 06/23/18 01:17 Active Vital Signs [RC] 08,12,16,20,00,04 Care 06/23/18 01:17 Active OT Evaluation and Treatment [CONS] Routine Cons 06/23/18 01:17 Active PT Evaluation and Treatment [CONS] Routine Cons 06/23/18 01:17 Active Consistent Carbohydrate Diet [DIET] Diet 06/23/18 Lunch Active Acetaminophen [Tylenol Arthritis Pain] Med 06/23/18 08:48 Ordered 650 mg PO Q4H PRN Acetaminophen [Tylenol] Med 06/23/18 01:17 Active 650 mg PO Q4H PRN Aspirin Med 06/23/18 09:00 Ordered 81 mg PO DAILY Atenolol [Tenormin] Med 06/23/18 09:00 Ordered 25 mg PO DAILY Calcium Polycarbophil [Fibercon] Med 06/23/18 09:00 Ordered 1,250 mg PO DAILY Chlorthalidone Med 06/23/18 09:00 Ordered 12.5 mg PO DAILY Citalopram [Celexa] Med 06/23/18 21:00 Ordered 20 mg PO BEDTIME Docusate Sodium [Colace] Med 06/23/18 08:48 Ordered 100 mg PO BID PRN Gabapentin [Neurontin] Med 06/23/18 09:00 Ordered 600 mg PO BID Lisinopril [Prinivil] Med 06/23/18 09:00 Ordered 2.5 mg PO DAILY Magnesium Oxide [Magnesium Oxide] Med 06/23/18 09:00 Ordered 420 mg PO BID Melatonin Med 06/23/18 21:00 Ordered 3 mg PO BEDTIME Pantoprazole [ProTONIX] Med 06/23/18 09:00 Ordered 40 mg PO DAILY Simvastatin [Zocor] Med 06/23/18 21:00 Ordered 40 mg PO BEDTIME metFORMIN [Glucophage] Med 06/23/18 09:00 Ordered 250 mg PO BID traMADol [Ultram] Med 06/23/18 08:48 Ordered 50 mg PO Q6H PRN Resuscitation Status Routine Resus Stat 06/23/18 01:17 Ordered EKG 12 Lead [EK] Stat Ther 06/23/18 01:17 Ordered Medication Orders Acetaminophen (Tylenol) 650 mg PO Q4H PRN PRN Reason: Pain (Mild 1-3)/fever Acetaminophen (Tylenol Arthritis Pain) 650 mg PO Q4H PRN PRN Reason: Pain Aspirin (Aspirin) 81 mg PO DAILY MELISSA Atenolol (Tenormin) 25 mg PO DAILY MELISSA Calcium Polycarbophil (Fibercon) 1,250 mg PO DAILY MELISSA Chlorthalidone (Chlorthalidone) 12.5 mg PO DAILY MELISSA Citalopram Hydrobromide (Celexa) 20 mg PO BEDTIME MELISSA Docusate Sodium (Colace) 100 mg PO BID PRN PRN Reason: Constipation Gabapentin (Neurontin) 600 mg PO BID MELISSA Lisinopril (Prinivil) 2.5 mg PO DAILY MELISSA Melatonin (Melatonin) 3 mg PO BEDTIME MELISSA Metformin HCl (Glucophage) 250 mg PO BID MELISSA Non-Formulary Medication (Magnesium Oxide [Magnesium Oxide]) 420 mg PO BID MELISSA Non-Formulary Medication (Simvastatin [Zocor]) 40 mg PO BEDTIME MELISSA Pantoprazole Sodium (Protonix) 40 mg PO DAILY MELISSA Tramadol HCl (Ultram) 50 mg PO Q6H PRN PRN Reason: Pain Assessment/Plan Comment:: 1. Admit for observation. Consider changing to admission because of his weakness. Will check a UA and see if that comes up positive. 2. CT head. 3. Regular medications. 4. Up with assist and walker. 5. SCD. Hold off on Lovenox until negative head CT. 6. Diabetic diet with Accu-Cheks twice a day. 7. Social service to see.
--- NOTE | 2018-06-23 11:34 | CT ---
INDICATION: Fell last night. Scrapes on right forehead. CT HEAD WITHOUT CONTRAST: TECHNIQUE: Axial images through the head without contrast. Soft tissue and bone window images. FINDINGS: There is an earlier CT from 04/21/2018. This patient has bilateral subdural hematomas, a finding which is not evident on 04/21/2018. The subdurals are fairly symmetric in size. They displace the sulci from the inner table of the calvarium. The mass effect is otherwise balanced. There is no significant midline shift. The ventricles are somewhat compressed bilaterally, more pronounced than on 04/21/2018, related to the presence of the bilateral subdural hematomas. The subdural collections have a somewhat heterogeneous appearance. Frankly, I think the patient has acute on chronic blood products. There are some areas of hyperdensity. There are some areas that are isodense to brain parenchyma. There are some areas that are slightly hypodense to brain parenchyma. Otherwise , as is shown previously, there is mild small vessel ischemic change that is present. No other significant parenchymal density abnormality. On bone window images, I do not see a calvarial fracture. There is some soft tissue swelling identified, especially over the right frontal calvarium. The visualized paranasal sinuses appear clear. IMPRESSION: There are bilateral subdural hematomas that are present, which are new compared with 04/21/2018. 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 There is mass effect as above, though the overall mass effect is balanced, and there is no significant midline shift. Soft tissue swelling over the right frontal calvarium, although no underlying skull fracture. [facility]
[2018-06-23 12:21] VITALS: BP 138/70
--- NOTE | 2018-06-23 12:52 | PCM.SN ---
- Free Text/Narrative Note: CT scan was done that shows bilateral subdural hematomas. This is an [facility] patient. I talked to Dr. Bustamante, he states the patient needs the subdural drain. I talked the patient is willing to go through the procedures well discharged by ambulance with Dr. Bustamante receiving. I called the nurse and said hold all the medicines especially the aspirin which she is not seemed today. Patient was made nothing by mouth. Last time he ate was 11:30 AM.
--- NOTE | 2018-06-23 12:58 | PCM.DCSUM1 ---
Discharge Summary - Hospital Course Free Text/Narrative:: Hospital course-I saw the patient in the morning and the nurses stated he was profoundly more weak than he was previous admission for rehab which was little over a month ago. Patient had no concerns. He looked normal. Before certainly Lovegonzalox I decided to do a head CT. This showed acute upon chronic bilateral subdural hematomas. He had his meds held because of airway disease it would be inpatient or outpatient and he had no one to get his medication. So I have made him nothing by mouth after is 11:30 AM meal and he did not getting his medications are held the mole. I talked to neurosurgery at [facility] who stated he needed an operation if he was willing to go through it. He says he is so he'll be transferred by [facility] ambulance to [facility] for definitive treatment. So told the nurses to start 75 mL normal saline to give him some fluids while he is nothing by mouth and not getting any of his medications. Brief History: This is an 83-year-old male patient that was getting ready to go to bed last night in his home. Says he went to get into bed and they see no he fell to the ground and hit his head on the carpet. He said he got tangled up in his walker. Luckily his phone was close by and he called 911 and came into the ER by ambulance and was admitted for observation. No head CT was done. Patient states he was in the hospital in April for rehabilitation for her shoulder surgery. But he states he's been getting progressively weaker recently. He normally walks with a cane but now is walking with a walker. The nurse noted that he was profoundly weak compared to when he was here a little over a month ago. He says he has no other problems going on. He denies any runny nose, sore throat, chest pain, shortness of breath, GI or symptoms. Diagnosis: Stroke: No - Discharge Data Discharge Date: 06/23/18 Discharge Disposition: DC/Tfer to Acute Hospital 02 Condition: Good - Discharge Diagnosis/Problem(s) (1) Weakness SNOMED Code(s): 18248023 ICD Code: R53.1 - WEAKNESS Status: Acute Current Visit: Yes (2) Palliative care status SNOMED Code(s): 361046574 ICD Code: Z51.5 - ENCOUNTER FOR PALLIATIVE CARE Status: Acute Current Visit: Yes (3) Accidental fall SNOMED Code(s): 257278250 ICD Code: W19.XXXA - UNSPECIFIED FALL, INITIAL ENCOUNTER Status: Acute Current Visit: No Qualifiers: Encounter type: initial encounter Qualified Code(s): W19.XXXA - Unspecified fall, initial encounter (4) Subdural hematoma SNOMED Code(s): 11659026 ICD Code: S06.5X9A - TRAUM SUBDR HEM W LOC OF UNSP DURATION, INIT Status: Acute Current Visit: Yes - Patient Summary/Data Consults: Consultations 06/23/18 01:17 OT Evaluation and Treatment [CONS] Routine Please Evaluate and Treat. OT Reason for Consult: Strengthening This query below is only for informational purposes and is not editable. PT Evaluation and Treatment [CONS] Routine Please Evaluate and Treat. PT Reason for Consult: Ambulation This query below is only for informational purposes and is not editable. 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 Transfer to [facility] per [facility] ambulance. Dr. Davalos receiving. 2. Nothing by mouth. 3. Hold all medications - Discharge Plan Home Medications: Home Meds Atenolol [Tenormin] 25 mg PO DAILY 01/14/15 [History] Aspirin [Children's Aspirin] 81 mg PO DAILY 01/15/15 [History] Gabapentin [Neurontin] 600 mg PO BID 11/16/16 [History] Chlorthalidone 12.5 mg PO DAILY 03/10/18 [History] Pantoprazole Sodium [Protonix] 40 mg PO DAILY 03/10/18 [History] metFORMIN HCl [Metformin HCl] 250 mg PO BID 03/10/18 [History] Acetaminophen [Tylenol Arthritis] 650 mg PO Q4H PRN 04/21/18 [History] Docusate Sodium 100 mg PO BID PRN 04/22/18 [History] Magnesium Oxide 420 mg PO BID 04/22/18 [History] Melatonin 3 mg PO BEDTIME tablet 04/25/18 [Rx] traMADol [Ultram] 50 mg PO Q6H PRN #40 tablet 04/25/18 [Rx] Calcium Polycarbophil [Fibercon] 1,250 mg PO DAILY 06/23/18 [History] Citalopram [Citalopram HBr] 20 mg PO BEDTIME 06/23/18 [History] Lisinopril 2.5 mg PO DAILY 06/23/18 [History] Simvastatin [Zocor] 40 mg PO BEDTIME 06/23/18 [History] Forms: ED Department Discharge Referrals: Anshu Reagan MD [Primary Care Provider] - - Discharge Summary/Plan Comment DC Time >30 min.: Yes (Discussing CTs with neurosurgery and making arrangements besides seeing him) - Patient Data Vitals - Most Recent: Last Vital Signs Temp 97.9 F 06/23/18 12:00 Pulse 95 06/23/18 12:00 Resp 16 06/23/18 12:00 BP 138/70 06/23/18 12:00 Pulse Ox 96 06/23/18 12:00 Weight - Most Recent: 191 lb 8 oz I&O - Last 24 hours: Intake & Output 06/22/18 06/23/18 06/23/18 22:59 06:59 14:59 Intake Total 100 Output Total 350 Balance -250 Lab Results - Last 24 hrs: Laboratory Results - last 24 hr 06/23/18 06/23/18 06/23/18 Range/Units 06:05 06:05 06:05 WBC 9.4 (4.5-12.0) X10-3/uL RBC 3.80 L (4.30-5.75) x10(6)uL Hgb 10.6 L (11.5-15.5) g/dL Hct 33.0 (30.0-51.3) % MCV 86.8 (80-96) fL MCH 28.0 (27.7-33.6) pg MCHC 32.2 (32.2-35.4) g/dL RDW 14.4 (11.5-15.5) % Plt Count 201 (125-369) X10(3)uL MPV 7.4 (7.4-10.4) fL Neut % (Auto) 58.4 (46-82) % Lymph % (Auto) 31.8 (13-37) % [place] % (Auto) 6.5 (4-12) % Eos % (Auto) 2 (1.0-5.0) % Baso % (Auto) 1 (0-2) % Neut # (Auto) 5.5 (1.6-8.3) # Lymph # (Auto) 3.0 (0.6-5.0) # [place] # (Auto) 0.6 (0.0-1.3) # Eos # (Auto) 0.2 (0.0-0.8) # Baso # (Auto) 0.1 (0.0-0.2) # Sodium 139 (135-145) mmol/L Potassium 3.4 L (3.5-5.3) mmol/L Chloride 102 (100-110) mmol/L Carbon Dioxide 28 (21-32) mmol/L BUN 31 H (7-18) mg/dL Creatinine 1.1 (0.70-1.30) mg/dL Est Cr Clr Drug Dosing 54.30 mL/min Estimated GFR (MDRD) > 60 (>60) BUN/Creatinine Ratio 28.2 H (9-20) Glucose 133 H (80-116) mg/dL Calcium 9.4 (8.6-10.2) mg/dL Phosphorus 4.4 (2.6-4.6) mg/dL Troponin I < 0.017 L (<0.017-0.056) ng/mL Med Orders - Current: Current Medications Acetaminophen (Tylenol) 650 mg PO Q4H PRN PRN Reason: Pain (Mild 1-3)/fever Aspirin (Aspirin) 81 mg PO DAILY [facility] Atenolol (Tenormin) 25 mg PO DAILY [facility] Calcium Polycarbophil (Fibercon) 1,250 mg PO DAILY [facility] Chlorthalidone (Chlorthalidone) 12.5 mg PO DAILY [facility] Citalopram Hydrobromide (Celexa) 20 mg PO BEDTIME [facility] Docusate Sodium (Colace) 100 mg PO BID PRN PRN Reason: Constipation Gabapentin (Neurontin) 600 mg PO BID [facility] Lisinopril (Prinivil) 2.5 mg PO DAILY [facility] Melatonin (Melatonin) 3 mg PO BEDTIME [facility] Metformin HCl (Glucophage) 250 mg PO BID [facility] Non-Formulary Medication (Magnesium Oxide [Magnesium Oxide]) 420 mg PO BID [facility] Non-Formulary Medication (Simvastatin [Zocor]) 40 mg PO BEDTIME [facility] Pantoprazole Sodium (Protonix) 40 mg PO DAILY [facility] Tramadol HCl (Ultram) 50 mg PO Q6H PRN PRN Reason: Pain
[2018-06-23] MEDS ORDERED: Sodium Chloride 0.9% 1,000 ML IV SCH (13:00)
[2018-06-23] MEDS ORDERED: Citalopram 20 MG Tab PO SCH (21:00)
[2018-06-23] MEDS ORDERED: Melatonin 3 MG Tab PO SCH (21:00)
[2018-06-23] MEDS ORDERED: Non-Formulary Medication 1 Each (Simvastatin [Zocor] 40 MG) PO SCH (21:00)
== END 2018-06-23 14:10 | DRG 947 ==
LOC: FB.ED 01:00 → FB.MS 01:17 → OBSVTOIN 12:23
PROVIDERS: ADMIT Family Medicine; ATTEND Family Medicine
DX: R53.1 Weakness (principal); S06.5X9A Traumatic subdural hemorrhage with loss of consciousness of unspecified duration, initial encounter; W18.39XA Other fall on same level, initial encounter; Y93.89 Activity, other specified; Y92.013 Bedroom of single-family (private) house as the place of occurrence of the external cause; Z88.0 Allergy status to penicillin; Z79.82 Long term (current) use of aspirin; Z79.899 Other long term (current) drug therapy; R01.1 Cardiac murmur, unspecified; E78.00 Pure hypercholesterolemia, unspecified; I10 Essential (primary) hypertension; K21.9 Gastro-esophageal reflux disease without esophagitis; N40.0 Benign prostatic hyperplasia without lower urinary tract symptoms; M19.90 Unspecified osteoarthritis, unspecified site; F32.9 Major depressive disorder, single episode, unspecified; E11.9 Type 2 diabetes mellitus without complications; Z87.891 Personal history of nicotine dependence
CPT/HCPCS: 36415; 70450; 80048; 84100; 84484; 85025; 93005; 99284; J7030

== ENCOUNTER 2018-07-15 16:25 | Emergency (ER) | payer MEDICARE, BC ==
--- NOTE | 2018-07-15 16:57 | EDM.PDOC ---
ED HPI GENERAL MEDICAL PROBLEM - General Chief Complaint: General Stated Complaint: EVALUATION Time Seen by Provider: 07/15/18 16:56 Source of Information: Reports: Patient - Related Data Allergies Allergy/AdvReac Type Severity Reaction Status Date / Time amoxicillin [Amoxicillin] Allergy Diarrhea Verified 06/23/18 01:29 Penicillins Allergy Diarrhea Verified 06/23/18 01:29 Home Meds: Home Meds Atenolol [Tenormin] 25 mg PO DAILY 01/14/15 [History] Aspirin [Children's Aspirin] 81 mg PO DAILY 01/15/15 [History] Gabapentin [Neurontin] 600 mg PO BID 11/16/16 [History] Chlorthalidone 12.5 mg PO DAILY 03/10/18 [History] Pantoprazole Sodium [Protonix] 40 mg PO DAILY 03/10/18 [History] metFORMIN HCl [Metformin HCl] 250 mg PO BID 03/10/18 [History] Acetaminophen [Tylenol Arthritis] 650 mg PO Q4H PRN 04/21/18 [History] Docusate Sodium 100 mg PO BID PRN 04/22/18 [History] Magnesium Oxide 420 mg PO BID 04/22/18 [History] Melatonin 3 mg PO BEDTIME tablet 04/25/18 [Rx] traMADol [Ultram] 50 mg PO Q6H PRN #40 tablet 04/25/18 [Rx] Calcium Polycarbophil [Fibercon] 1,250 mg PO DAILY 06/23/18 [History] Citalopram [Citalopram HBr] 20 mg PO BEDTIME 06/23/18 [History] Lisinopril 2.5 mg PO DAILY 06/23/18 [History] Simvastatin [Zocor] 40 mg PO BEDTIME 06/23/18 [History] Past Medical History - Past Health History Medical/Surgical History: Denies Medical/Surgical History HEENT History: Reports: Cataract, Hard of Hearing, Impaired Vision Cardiovascular History: Reports: Heart Murmur, High Cholesterol, Hypertension Respiratory History: Reports: None Gastrointestinal History: Reports: GERD Genitourinary History: Reports: BPH 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 Dermatologic History: Reports: Other (See Below) Other Dermatologic History: DERMATITIS, UNSPECIFIED - Infectious Disease History Infectious Disease History: Reports: Chicken Pox, Measles, Mumps - Past Surgical History Head Surgeries/Procedures: Reports: None HEENT Surgical History: Reports: Cataract Surgery, Tonsillectomy Other Musculoskeletal Surgeries/Procedures:: L RICHMOND, R TSA and hx of OA Social & Family History - Family History Family Medical History: Noncontributory - Caffeine Use Caffeine Use: Reports: Coffee Other Caffeine Use: Pot ful a day Departure - Discharge Information Referrals: Anshu Reagan MD [Primary Care Provider] -
--- NOTE | 2018-07-15 17:28 | EDM.PDOC ---
ED HPI GENERAL MEDICAL PROBLEM - General Chief Complaint: General Stated Complaint: EVALUATION Time Seen by Provider: 07/15/18 16:56 Source of Information: Reports: Patient - History of Present Illness INITIAL COMMENTS - FREE TEXT/NARRATIVE: Patient was out with his therapist today when he developed sudden left-sided weakness which lasted about 10 minutes and spontaneously subsided. He status post intracranial brain bleeds and is currently undergoing physical therapy. He states he feels quite well at this time and is in no distress. He is denying any acute concerns. Onset: Sudden - Related Data Allergies Allergy/AdvReac Type Severity Reaction Status Date / Time amoxicillin [Amoxicillin] Allergy Diarrhea Verified 06/23/18 01:29 Penicillins Allergy Diarrhea Verified 06/23/18 01:29 Home Meds: Home Meds Atenolol [Tenormin] 25 mg PO DAILY 01/14/15 [History] Aspirin [Children's Aspirin] 81 mg PO DAILY 01/15/15 [History] Gabapentin [Neurontin] 600 mg PO BID 11/16/16 [History] Chlorthalidone 12.5 mg PO DAILY 03/10/18 [History] Pantoprazole Sodium [Protonix] 40 mg PO DAILY 03/10/18 [History] metFORMIN HCl [Metformin HCl] 250 mg PO BID 03/10/18 [History] Acetaminophen [Tylenol Arthritis] 650 mg PO Q4H PRN 04/21/18 [History] Docusate Sodium 100 mg PO BID PRN 04/22/18 [History] Magnesium Oxide 420 mg PO BID 04/22/18 [History] Melatonin 3 mg PO BEDTIME tablet 04/25/18 [Rx] traMADol [Ultram] 50 mg PO Q6H PRN #40 tablet 04/25/18 [Rx] Calcium Polycarbophil [Fibercon] 1,250 mg PO DAILY 06/23/18 [History] Citalopram [Citalopram HBr] 20 mg PO BEDTIME 06/23/18 [History] Lisinopril 2.5 mg PO DAILY 06/23/18 [History] Simvastatin [Zocor] 40 mg PO BEDTIME 06/23/18 [History] Past Medical History - Past Health History Medical/Surgical History: Denies Medical/Surgical History HEENT History: Reports: Cataract, Hard of Hearing, Impaired Vision Cardiovascular History: Reports: Heart Murmur, High Cholesterol, Hypertension Respiratory History: Reports: None Gastrointestinal History: Reports: GERD Genitourinary History: Reports: BPH 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 Dermatologic History: Reports: Other (See Below) Other Dermatologic History: DERMATITIS, UNSPECIFIED - Infectious Disease History Infectious Disease History: Reports: Chicken Pox, Measles, Mumps - Past Surgical History Head Surgeries/Procedures: Reports: None HEENT Surgical History: Reports: Cataract Surgery, Tonsillectomy Other Musculoskeletal Surgeries/Procedures:: L RICHMOND, R TSA and hx of OA Social & Family History - Family History Family Medical History: Noncontributory - Caffeine Use Caffeine Use: Reports: Coffee Other Caffeine Use: Pot ful a day ED ROS GENERAL - Review of Systems Review Of Systems: See Below Constitutional: Reports: No Symptoms Respiratory: Reports: No Symptoms Cardiovascular: Reports: No Symptoms GI/Abdominal: Reports: No Symptoms Neurological: Reports: Other (Transient left-sided weakness) ED EXAM, GENERAL - Physical Exam Exam: See Below Exam Limited By: No Limitations General Appearance: Alert, WD/WN, No Apparent Distress. No: Anxious, Lethargic Ears: Normal External Exam Nose: Normal Inspection Head: Atraumatic, Normocephalic, Facial Swelling Respiratory/Chest: No Respiratory Distress, Lungs Clear, Normal Breath Sounds Cardiovascular: Normal Peripheral Pulses, Regular Rate, Rhythm Neurological: Alert, Oriented, Normal Cognition, Other (Plan and instrument well -looking. Equal round and reactive. Face is symmetrical speech is clear and coherent. Negative Romberg sign. Able to stand and ambulate unaided.). No: Inattentive, Confused, Disoriented, Slow to Respond EKG INTERPRETATION EKG Date: 07/15/18 Rhythm: NSR ST-T: Depressed (v4 V5 and V6) QT: Prolonged Course - Vital Signs Text/Narrative:: EKG report received at 5:14 PM showing prolonged QTC and minimal ST depression in V4 to V6. Attempting to get old EKG from charge nurse at this time to compare. he has no distress prolonged QTC is concerning an awaiting labs at this time 5:44 PM EKG results obtained from 06/23/18 and there is no change from the current results . He has similar ST changes, long QTC back in May. I reviewed the patient's labs a CBC and CMP on there are no acute findings at this time he has an echocardiogram done this June I do not see any of the carotid Doppler, this should be recommended to be done on outpatient by primary care physician Patient is to continue on aspirin therapy, he is already on simvastatin CT reports showed preliminary CT report obtained from the radiologist Dr. Elijah Buchanan : Residual frontal subdural hematoma 11 mm on the right 12 mm on the left with areas of hyperdensity suggestive of possible rebleeding. I had a phone conversation with neurosurgeon at [facility] who has requested the patient come in via the emergency room. Dr Laurent the ED physician oncology physician assistant that the patient At 6:25 PM Gentleman at discharge assessment is pleasant in no distress speaking clearly coherent with Family members moving all his extremities. Transferred to [facility] Last Recorded V/S: Last Vital Signs Temp 36.6 C 07/15/18 16:30 Pulse 65 07/15/18 16:30 Resp 17 07/15/18 16:30 BP 82/45 L 07/15/18 16:30 Pulse Ox 100 07/15/18 16:30 - Orders/Labs/Meds Orders: Active Orders 24 hr Category Date Time Status EKG Documentation Completion [RC] ASDIRECTED Care 07/15/18 16:59 Active Head wo Cont [CT] Stat Exams 07/15/18 16:57 Taken EKG 12 Lead [EK] Stat Ther 07/15/18 16:58 Ordered Labs: Laboratory Tests 07/15/18 07/15/18 07/15/18 Range/Units 17:40 17:40 17:40 WBC 10.2 (4.5-12.0) X10-3/uL RBC 3.94 L (4.30-5.75) x10(6)uL Hgb 10.7 L (11.5-15.5) g/dL Hct 33.1 (30.0-51.3) % MCV 84.0 (80-96) fL MCH 27.2 L (27.7-33.6) pg MCHC 32.3 (32.2-35.4) g/dL RDW 14.2 (11.5-15.5) % Plt Count 407 H (125-369) X10(3)uL MPV 7.0 L (7.4-10.4) fL Neut % (Auto) 57.2 (46-82) % Lymph % (Auto) 33.4 (13-37) % [place] % (Auto) 5.8 (4-12) % Eos % (Auto) 3 (1.0-5.0) % Baso % (Auto) 1 (0-2) % Neut # (Auto) 5.8 (1.6-8.3) # Lymph # (Auto) 3.4 (0.6-5.0) # [place] # (Auto) 0.6 (0.0-1.3) # Eos # (Auto) 0.3 (0.0-0.8) # Baso # (Auto) 0.1 (0.0-0.2) # PT 11.4 H (8.7-11.1) INR 1.18 H (0.89-1.13) Sodium 139 (135-145) mmol/L Potassium 3.8 (3.5-5.3) mmol/L Chloride 100 (100-110) mmol/L Carbon Dioxide 30 (21-32) mmol/L BUN 28 H (7-18) mg/dL Creatinine 1.2 (0.70-1.30) mg/dL Est Cr Clr Drug Dosing TNP Estimated GFR (MDRD) 58 L (>60) BUN/Creatinine Ratio 23.3 H (9-20) Glucose 155 H (80-116) mg/dL Calcium 9.4 (8.6-10.2) mg/dL Total Bilirubin 0.2 (0.1-1.3) mg/dL AST 11 D (5-25) IU/L ALT 12 D (12-36) U/L Alkaline Phosphatase 114 H (56-112) IU/L Troponin I (<0.017-0.056) ng/mL Total Protein 7.3 (6.0-8.0) g/dL Albumin 2.9 L (3.2-4.6) g/dL Globulin 4.4 g/dL Albumin/Globulin Ratio 0.7 //18 Range/Units 17:40 WBC (4.5-12.0) X10-3/uL RBC (4.30-5.75) x10(6)uL Hgb (11.5-15.5) g/dL Hct (30.0-51.3) % MCV (80-96) fL MCH (27.7-33.6) pg MCHC (32.2-35.4) g/dL RDW (11.5-15.5) % Plt Count (125-369) X10(3)uL MPV (7.4-10.4) fL Neut % (Auto) (46-82) % Lymph % (Auto) (13-37) % [place] % (Auto) (4-12) % Eos % (Auto) (1.0-5.0) % Baso % (Auto) (0-2) % Neut # (Auto) (1.6-8.3) # Lymph # (Auto) (0.6-5.0) # [place] # (Auto) (0.0-1.3) # Eos # (Auto) (0.0-0.8) # Baso # (Auto) (0.0-0.2) # PT (8.7-11.1) INR (0.89-1.13) Sodium (135-145) mmol/L Potassium (3.5-5.3) mmol/L Chloride (100-110) mmol/L Carbon Dioxide (21-32) mmol/L BUN (7-18) mg/dL Creatinine (0.70-1.30) mg/dL Est Cr Clr Drug Dosing Estimated GFR (MDRD) (>60) BUN/Creatinine Ratio (9-20) Glucose (80-116) mg/dL Calcium (8.6-10.2) mg/dL Total Bilirubin (0.1-1.3) mg/dL AST (5-25) IU/L ALT (12-36) U/L Alkaline Phosphatase (56-112) IU/L Troponin I < 0.017 L (<0.017-0.056) ng/mL Total Protein (6.0-8.0) g/dL Albumin (3.2-4.6) g/dL Globulin g/dL Albumin/Globulin Ratio Departure - Departure Time of Disposition: 18:36 Disposition: DC/Tfer to Acute Hospital 02 Condition: Fair Clinical Impression: Subdural hematoma, Prolonged Q-T interval on ECG - Discharge Information *PRESCRIPTION DRUG MONITORING PROGRAM REVIEWED*: Not Applicable *COPY OF PRESCRIPTION DRUG MONITORING REPORT IN PATIENT ROSMERY: Not Applicable Referrals: Anshu Reagan MD [Primary Care Provider] - Forms: ED Department Discharge, Interfacility Transfer EMTALA - My Orders Last 24 Hours: My Active Orders 07/15/18 16:57 Head wo Cont [CT] Stat 07/15/18 16:58 EKG 12 Lead [EK] Stat 07/15/18 16:59 EKG Documentation Completion [RC] ASDIRECTED - Assessment/Plan Last 24 Hours: My Active Orders 07/15/18 16:57 Head wo Cont [CT] Stat 07/15/18 16:58 EKG 12 Lead [EK] Stat 07/15/18 16:59 EKG Documentation Completion [RC] ASDIRECTED
[2018-07-15 17:49] VITALS: BP 82/45
== END 2018-07-15 19:06 ==
LOC: FB.ED 16:25
DX: I62.00 Nontraumatic subdural hemorrhage, unspecified (principal); I10 Essential (primary) hypertension; E11.9 Type 2 diabetes mellitus without complications; Z88.0 Allergy status to penicillin; Z88.1 Allergy status to other antibiotic agents; Z79.899 Other long term (current) drug therapy
CPT/HCPCS: 36415; 70450; 80053; 84484; 85025; 85610; 93005; 99285

== ENCOUNTER 2025-09-03 15:12 | Emergency (ER) | payer OTHER, MEDICARE, BC ==
[2025-09-03 15:42] VITALS: PULSE 72
[2025-09-03 16:01] LABS: BASOPHILS ABSOLUTE AUTO 0.1 x10-3/uL (0.0-0.3); BASOPHILS PERCENT AUTO 0.8 % (0.3-3.8); EOSINOPHILS ABSOLUTE AUTO 0.2 x10-3/uL (0.0-0.6); EOSINOPHILS PERCENT AUTO 1.8 % (0.1-6.8); LYMPHOCYTES ABSOLUTE AUTO 2.2 x10-3/uL (0.5-4.5); LYMPHOCYTES PERCENT AUTO 25.9 % (15.8-45.3); MEAN PLATELET VOLUME 7.1 fL (6.7-11.0); MONOCYTES ABSOLUTE AUTO 0.5 x10-3/uL (0.0-1.2); MONOCYTES PERCENT AUTO 5.4 % (5.5-15.2); NEUTROPHILS ABSOLUTE AUTO 5.5 x10-3/uL (1.7-6.9); NEUTROPHILS PERCENT AUTO 66.1 % (40.3-71.8); PLATELET COUNT,PLT 284 x10(3)uL (117-477); RED BLOOD CELL COUNT 4.54 x10(6)uL (3.90-5.90); RED CELL DISTRIBUTION WIDTH 14.7 % (12.4-15.0); WHITE BLOOD CELL COUNT,WBC 8.4 x10-3/uL (3.2-10.1)
[2025-09-03 16:04] LABS: BLOOD UREA NITROGEN,BUN 22 mg/dL (7-18); CARBON DIOXIDE,CO2 27 mmol/L (21-32); CHLORIDE,CL 102 mmol/L (100-110); CREATININE 1.2 mg/dL (0.70-1.30); EST CRCL DRUG DOSING (CG) 45.81 mL/min; ESTIMATED GFR 58 mL/min (>60); GLUCOSE RANDOM 169 mg/dL (80-116); POTASSIUM,K 4.7 mmol/L (3.5-5.3); SODIUM,NA 140 mmol/L (135-145)
[2025-09-03 16:10] LABS: A/G RATIO 0.8; ALANINE AMINOTRANSFERASE,ALT 11 U/L (12-36); ASPARTATE AMNIOTRANSFERASE,AST 12 IU/L (5-25); BILIRUBIN TOTAL 0.4 mg/dL (0.1-1.3); PROTEIN TOTAL,TP 7.3 g/dL (6.0-8.0)
[2025-09-03 16:19] LABS: PRO B-TYPE NATRIUR PEPT,BNPPRO 1227.0 pg/mL (<=450)
[2025-09-03 16:42] LABS: GLUCOSE,URINE >1000 mg/dL (NORMAL); OCCULT BLOOD,URINE MODERATE (NEGATIVE)
[2025-09-03 16:44] LABS: APPEARANCE,URINE CLEAR (CLEAR)
[2025-09-03 16:45] LABS: SQUAMOUS EPITHELIAL CELLS,UR FEW (NS,R,O)
[2025-09-03 17:52] VITALS: BP 127/61
== END 2025-09-03 17:34 | disposition home or self-care (01) ==
LOC: FB.ED 15:12
DX: R55 Syncope and collapse (principal); E86.0 Dehydration; I10 Essential (primary) hypertension; E78.00 Pure hypercholesterolemia, unspecified; E11.9 Type 2 diabetes mellitus without complications; K21.9 Gastro-esophageal reflux disease without esophagitis; Z88.0 Allergy status to penicillin; Z79.899 Other long term (current) drug therapy; Z79.82 Long term (current) use of aspirin; Z79.84 Long term (current) use of oral hypoglycemic drugs
CPT/HCPCS: 36415; 80053; 81001; 83735; 83880; 84484; 85025; 86140; 93005; 99284; J7040